=== PATIENT | female | born 1965 | race Caucasian/White ===

== ENCOUNTER → 2016-03-15 | Outpatient (CLI) | payer BC ==
[~2016-03-15] MED LIST: BCPILLS PO
== END | disposition home or self-care (01) ==
LOC: C.PAPS 12:03
PROVIDERS: ATTEND Obstetrics & Gynecology
DX: Z01.419 Encounter for gynecological examination (general) (routine) without abnormal findings (principal); N87.0 Mild cervical dysplasia

== ENCOUNTER → 2016-06-02 | Outpatient (CLI) | payer BC ==
[2016-06-02 15:40] LABS: BASO % 1.1 %; BASO ABS # 0.09 K/uL (0-0.2); COMPLETE YES; EOS % 1.9 %; HEMATOCRIT 41.1 % (37-47); IG% 0.2 %; LYMPH % 26.5 %; LYMPH ABS # 2.24 K/uL (1.2-3.4); MEAN CELL VOLUME 97.6 fL (80-100); MEAN CORPUSCULAR HEMOGLOBIN 33.7 pg (25-34); MEAN CORPUSCULAR HGB CONC 34.5 g/dl (32-36); MEAN PLATELET VOLUME 9.8 fL (7.4-10.4); MONO % 7.7 %; NEUT % 62.6 %; PLATELET COUNT 310 K/uL (130-400); RED BLOOD COUNT 4.21 M/uL (4.2-5.4); WHITE BLOOD COUNT 8.44 K/uL (4.8-10.8)
[2016-06-02 16:15] LABS: ALT/SGPT 43 U/L (12-78); AST/SGOT 33 U/L (15-37); BLOOD UREA NITROGEN 24 mg/dl (7-18); BUN/CREATININE RATIO 23.9 (10-20); CALCIUM 9.3 mg/dl (8.5-10.1); CARBON DIOXIDE 30 mmol/L (21-32); CHLORIDE 101 mmol/L (98-107); GLUCOSE 108 mg/dl (70-99); POTASSIUM 4.2 mmol/L (3.5-5.1); SODIUM 139 mmol/L (136-145)
[2016-06-02 16:27] LABS: ALKALINE PHOSPHATASE 75 U/L (45-117)
== END | disposition home or self-care (01) ==
LOC: C.LAB 14:11
PROVIDERS: ATTEND Psychiatry & Neurology Psychiatry
DX: F33.2 Major depressive disorder, recurrent severe without psychotic features (principal)

== ENCOUNTER 2021-08-05 14:58 | Inpatient (IN) ==
--- NOTE | 2021-08-05 16:16 | Emergency Department Note ---
History of Present Illness General Chief complaint: Abnormal Labs/Diagnostic Testing Stated complaint: Weakness Time Seen by Provider: 08/05/21 15:36 Source: patient Mode of arrival: ambulatory Limitations: no limitations History of Present Illness Provider complaint: dizziness, vomiting, abnormal labs Onset (ago): week(s) 5 Associated symptoms: + loss of appetite, + malaise and + nausea/vomiting; no chest pain, no fever/chills or no headaches Treatments prior to arrival: none This is a 56-year-old female presents emergency department complaining of dizziness, vomiting, weakness, and abnormal labs. Patient states symptoms first began about 5 to 6 weeks ago. She had finally gone to her PCP recently who ordered outpatient labs on her. She states she received phone call that her labs were abnormal and she was to come to the emergency room for additional evaluation. Patient denies any history of stomach problems, but does states th at she vomits daily and has a hard time keeping anything down. She states she does have a history of reflux and does take a stomach medication daily. Patient states she also has history of seizures and takes Keppra. She states she has not had a seizure in about a year. She states her medications were recently changed and that her bupropion was stopped and she was started on escitalopram. She states she also takes daily thyroid medication. Denies any sick contact. Patient denies any history of IBS or IBD. Patient states she has had several falls related to her dizziness. Patient also admits to daily alcohol use after work. She states after work she will go to the pub "drink 3 beers". Pt seen during a time of high acuity and national emergency pandemic while wearing PPE. Home Medications Medication Instructions Recorded Confirmed Type bupropion HCl 300 mg 24 hr tablet, 300 mg PO QPM 11/07/17 08/05/21 History extended release levetiracetam 500 mg tablet 500 mg PO BID 28 Days #56 tab 01/29/20 08/05/21 Rx (Keppra) levothyroxine 75 mcg tablet 75 mcg PO QAM 05/28/20 08/05/21 History mecobalamin (vitamin B12) 1,000 1,000 mcg PO QAM 08/05/21 08/05/21 History mcg chewable tablet (B12 Active) pantoprazole 40 mg tablet,delayed 40 mg PO QAM 08/05/21 08/05/21 History release Allergies Allergy/AdvReac Type Severity Reaction Status Date / Time No Known Allergies Allergy Unknown Verified 11/07/17 17:50 Past Med/Surg History Medical History (Updated 08/06/21 @ 22:05 by Carlee Mayer DO) Alcohol abuse Alcoholic liver disease Depression Encounter for gynecological examination without abnormal finding Menopause Mild cervical dysplasia, histologically confirmed Postmenopausal hormone replacement therapy Social History Smoking Status: Current some day smoker Tobacco Type: Cigarettes Second Hand Exposure: No; Do You Dip or Chew Tobacco: No; Tobacco Cessation Education Requested by Patient: No Hx Alcohol Use: Yes Alcohol type: beer Hx Substance Use: No Preferred Language: Namibian Communication Ability Comment: Not able to comprehend at this time. 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 Beliefs That Will Affect Care: None Feels Safe at Home: Yes Safety Concerns: Feels Safe At This Time Review of Systems A total of 10 systems reviewed and were otherwise negative All systems reviewed & are unremarkable except as noted in HPI & below Physical Exam Vital Signs Vital Signs - 24 hr 08/05/21 15:22 08/05/21 17:00 08/05/21 19:00 Temperature 37.3 C Temperature Source Oral Pulse Rate 83 Pulse Rate [Right Finger] 94 H 90 Pulse Rhythm Regular Pulse Rhythm [Right Finger] Regular Regular Pulse Strength Normal Pulse Strength [Right Finger] Normal Normal Respiratory Rate 16 18 18 Respiratory Effort / Characteristics Non-Labored Non-Labored Non-Labored Respiratory Depth Normal Normal Normal Respiratory Pattern Regular Regular Regular Blood Pressure 117/79 Blood Pressure [Left Arm] 110/83 110/83 Blood Pressure Mean 91 Blood Pressure Mean [Left Arm] 92 92 Blood Pressure Position Lying Blood Pressure Position [Left Arm] Lying Pulse Oximetry 98 99 98 Oxygen Delivery Method Room Air Room Air Sepsis Recent Fever Within 48 Hours No Sepsis New/Unexplained Change in Mental Status No Sepsis Action Taken by Nursing No Action Required 08/05/21 21:00 Temperature Temperature Source Pulse Rate Pulse Rate [Right Finger] 87 Pulse Rhythm Pulse Rhythm [Right Finger] Regular Pulse Strength Pulse Strength [Right Finger] Normal Respiratory Rate 18 Respiratory Effort / Characteristics Non-Labored Respiratory Depth Normal Respiratory Pattern Regular Blood Pressure Blood Pressure [Left Arm] 132/77 Blood Pressure Mean Blood Pressure Mean [Left Arm] 95 Blood Pressure Position Blood Pressure Position [Left Arm] Lying Pulse Oximetry 97 Oxygen Delivery Method Room Air Sepsis Recent Fever Within 48 Hours Sepsis New/Unexplained Change in Mental Status Sepsis Action Taken by Nursing GENERAL: alert, unwell appearing, anxious, no distress, non-toxic EYE EXAM: normal conjunctiva, PERRL and EOM's grossly intact, scleral icterus noted OROPHARYNX: no exudate, no erythema, lips, buccal mucosa, and tongue normal and mucous membranes are moist NECK: supple, no nuchal rigidity, no adenopathy, non-tender LUNGS: Clear to auscultation. Normal chest wall mechanics, no w/r/r HEART: no murmurs, S1 normal and S2 normal ABDOMEN: abdomen soft, non-tender, normo-active bowel sounds, no masses, no rebound or guarding. BACK: Back is symmetrical on inspection and there is no deformity, no midline tenderness, no CVA tenderness. SKIN: no rashes, no petechiae, small bruise noted to the left forearm, patient obviously jaundiced UPPER EXTREMITIES: upper extremities are grossly normal. FROM, nml pulses b/l. LOWER EXTREMITIES: No pitting edema. FROM, nml pulses b/l. NEURO EXAM: Normal sensorium, cranial nerves II-XII grossly intact, normal speech, no gross weakness of arms, no gross weakness of legs. Fine tremors noted. gross sensation intact. Course Administered Medications Cyanocobalamin (Cyanocobalamin (B-12) 500 Mcg Tablet) 1,[address] [facility] Stop: 09/05/21 08:59 Last Admin: 08/06/21 08:06 Dose: 1,000 mcg Documented by: [id number] Folic Acid (Folic Acid 1 Mg Tab) [address] [facility] Stop: 09/05/21 00:03 Last Admin: 08/06/21 08:06 Dose: 1 mg Documented by: [id number] Admin: 08/06/21 00:57 Dose: 1 mg Documented by: [id number] Potassium Chloride/Sodium Chloride (Normal Saline W/20 Meq Kcl) 20 meq in 1,000 mls @ 100 mls/hr IV .Q10H [facility]; Protocol Stop: 08/07/21 11:29 Last Admin: 08/06/21 16:32 Dose: 100 mls/hr Documented by: [id number] Ceftriaxone Sodium 1,000 mg/ (Dextrose) 60 mls @ 100 mls/hr IV Q24H [facility]; Protocol Stop: 08/08/21 21:59 Last Infusion: 08/06/21 21:36 Dose: 0 mls/hr Documented by: [id number] Admin: 08/06/21 20:59 Dose: 100 mls/hr Documented by: [id number] Levetiracetam (Levetiracetam 500 Mg Tab) 500 mg PO BID [facility] Stop: 09/05/21 08:59 Last Admin: 08/06/21 20:59 Dose: 500 mg Documented by: [id number] Admin: 08/06/21 08:06 Dose: 500 mg Documented by: [id number] Levothyroxine Sodium (Levothyroxine Sodium 75 Mcg Tablet) 75 mcg PO DAILYBB [facility] Stop: 09/05/21 06:29 Last Admin: 08/06/21 08:06 Dose: 75 mcg Documented by: [id number] Lorazepam (Lorazepam 2 Mg/1 Ml Vial) 1 mg IV UD PRN; Protocol PRN Reason: EtOH Withdrawl AWSS Score 6,7 Stop: 09/05/21 00:03 Last Admin: 08/06/21 21:00 Dose: 1 mg Documented by: [id number] Lorazepam (Lorazepam 2 Mg/1 Ml Vial) 2 mg IV UD PRN; Protocol PRN Reason: EtOH Withdrawl AWSS Score 8,9 Stop: 09/05/21 00:03 Last Admin: 08/06/21 00:57 Dose: 2 mg Documented by: [id number] Potassium Chloride (Potassium Chloride Crtab 20 Meq Tabcr) 20 meq PO Q4H [facility] Stop: 08/07/21 10:31 Last Admin: 08/06/21 21:00 Dose: 20 meq Documented by: [id number] Admin: 08/06/21 18:42 Dose: 20 meq Documented by: [id number] Prednisolone Sodium Phosphate (Prednisolone Sod Phosphate 15 Mg/5 Ml) 40 mg PO BID [facility] Stop: 09/05/21 20:59 Last Admin: 08/06/21 20:59 Dose: 40 mg Documented by: [id number] Thiamine HCl (Thiamine Hcl 100 Mg Tab) 100 mg PO QAM [facility] Stop: 09/05/21 00:03 Last Admin: 08/06/21 08:07 Dose: 100 mg Documented by: [id number] Admin: 08/06/21 00:57 Dose: 100 mg Documented by: [id number] Discontinued Medications Sodium Chloride (Nss 1000ml) 1,000 mls @ 125 mls/hr IV .Q8H [facility] Stop: 09/04/21 17:59 Last Infusion: 08/06/21 13:35 Dose: 0 mls/hr Documented by: [id number] Admin: 08/06/21 09:39 Dose: 125 mls/hr Documented by: [id number] Infusion: 08/06/21 09:39 Dose: 125 mls/hr Documented by: [id number] Admin: 08/06/21 02:32 Dose: 125 mls/hr Documented by: [id number] Infusion: 08/06/21 02:31 Dose: 0 mls/hr Documented by: [id number] Admin: 08/05/21 18:41 Dose: 125 mls/hr Documented by: [id number] Multivitamins 10 ml/ Thiamine HCl 100 mg/ Folic Acid 1 mg/Sodium Chloride 1,011.2 mls @ 200 mls/hr IV .Q5H4M ONE Stop: 08/05/21 22:59 Last Infusion: 08/06/21 01:38 Dose: 0 mls/hr Documented by: [id number] Admin: 08/05/21 18:40 Dose: 200 mls/hr Documented by: [id number] Ceftriaxone Sodium (Rocephin) 1,000 mg in 50 mls @ 100 mls/hr IV NOW STA Stop: 08/05/21 21:21 Last Infusion: 08/05/21 22:43 Dose: 0 mls/hr Documented by: [id number] Admin: 08/05/21 21:55 Dose: 100 mls/hr Documented by: [id number] Potassium Chloride (K Keny / Wtr) 10 meq in 100 mls @ 100 mls/hr IV Q1H [facility]; Protocol Stop: 08/06/21 17:44 Last Infusion: 08/06/21 17:41 Dose: 0 mls/hr Documented by: [id number] Admin: 08/06/21 16:33 Dose: 100 mls/hr Documented by: [id number] Infusion: 08/06/21 16:33 Dose: 100 mls/hr Documented by: [id number] Admin: 08/06/21 16:32 Dose: 100 mls/hr Documented by: [id number] Infusion: 08/06/21 15:12 Dose: 0 mls/hr Documented by: [id number] Admin: 08/06/21 14:09 Dose: 100 mls/hr Documented by: [id number] Infusion: 08/06/21 14:09 Dose: 100 mls/hr Documented by: [id number] Admin: 08/06/21 14:09 Dose: 100 mls/hr Documented by: [id number] Lorazepam (Lorazepam 2 Mg/1 Ml Vial) 0.5 mg IV NOW STA; Protocol Stop: 08/05/21 20:22 Last Admin: 08/05/21 20:52 Dose: 0.5 mg Documented by: [id number] Potassium Chloride (Potassium Chloride Crtab 20 Meq Tabcr) 20 meq PO TID [facility] Stop: 08/07/21 09:01 Last Admin: 08/06/21 14:09 Dose: 20 meq Documented by: [id number] Medical Decision Making Differential Diagnosis Differential diagnosis includes etiologies such as benign positional vertigo, dehydration, hypovolemia, anemia, tumor, infection, hypoglycemia, electrolyte abnormalities, cardiac sources, intracerebral event, toxicologic, neurologic, as well as others were entertained. Medical Records Attestation: I reviewed the patient's medical records. Home Medications Current Medication List: was personally reviewed by me Laboratory Data Attestation: I reviewed the patient's lab results. Result diagrams: 08/06/21 06:49 08/06/21 19:08 Lab Results 08/05/21 08/05/21 08/05/21 Range/Units 15:27 15:27 15:27 WBC 6.11 (4.8-10.8) K/uL RBC 2.32 L (4.2-5.4) M/uL Hgb 8.7 L (12.0-16.0) g/dL Hct 25.5 L (37-47) % MCV 109.9 H (80-100) fL MCH 37.5 H (25-34) pg MCHC 34.1 (32-36) g/dL RDW Std Deviation 63.1 H (36.4-46.3) fL RDW Coeff of Wilbur 16.4 H (11.5-14.5) % Plt Count 198 (130-400) K/uL MPV 11.8 H (7.4-10.4) fL Immature Gran % (Auto) 0.8 % Neut % (Auto) 72.1 % Lymph % (Auto) 13.1 % [place] % (Auto) 13.3 % Eos % (Auto) 0.2 % Baso % (Auto) 0.5 % Neut # (Auto) 4.41 (1.4-6.5) K/uL Lymph # (Auto) 0.80 L (1.2-3.4) K/uL [place] # (Auto) 0.81 H (0.11-0.59) K/uL Eos # (Auto) 0.01 (0-0.5) K/uL Baso # (Auto) 0.03 (0-0.2) K/uL Immature Gran # (Auto) 0.05 H (0.00-0.02) K/uL Absolute Nucleated RBC 0.10 H (0-0) K/uL Nucleated RBC % (auto) 1.6 % PT 12.0 (9.0-12.0) Seconds INR 1.1 (0.9-1.1) Sodium 123 L (136-145) mmol/L Potassium 3.2 L (3.5-5.1) mmol/L Chloride 84 L (98-107) mmol/L Carbon Dioxide 26 (21-32) mmol/L Anion Gap 13 H (3-11) BUN 9 (6-23) mg/dl Creatinine 0.67 (0.6-1.2) mg/dl Est Cr Clr Drug Dosing 63.4 ml/min Est GFR ( Amer) 112.3 ml/min Est GFR (Non-Af Amer) 96.9 ml/min BUN/Creatinine Ratio 13.4 (10-20) Glucose 102 H (70-99(Fasting)) mg/dl Calcium 8.1 L (8.5-10.1) mg/dl Magnesium 1.8 (1.7-2.4) mg/dl Total Bilirubin 15.3 H (0.2-1.0) mg/dl AST 261 H (13-39) U/L ALT 102 H (7-52) U/L Alkaline Phosphatase 399 H (34-104) U/L Ammonia (18-72) umol/L Troponin I High Sens 33.2 H (0-14) pg/ml Total Protein 4.8 L (6.0-8.3) gm/dl Albumin 2.9 L (3.4-5.0) gm/dl Globulin 1.9 L (2.5-4.0) gm/dl Albumin/Globulin Ratio 1.5 (0.9-2) Lipase TNP TSH (0.300-4.500) uIu/ml Urine Color Urine Appearance (Clear) Urine pH (4.5-7.5) Ur Specific Jewett (1.000-1.030) Urine Protein (Negative) Urine Glucose (UA) (Negative) Urine Ketones (Negative) Urine Blood (Negative) Urine Nitrite (Negative) Urine Bilirubin (Negative) Urine Urobilinogen (Negative) Ur Leukocyte Esterase (Negative) Urine WBC (Auto) (0-5) /hpf Urine RBC (Auto) (0-4) /hpf U Hyaline Cast (Auto) (0-5) /lpf U Epithel Cells (Auto) (0-5) /lpf Urine Bacteria (Auto) (Negative) Urine Crystals Calcium Oxalate Crystal (None Prsent) Acetaminophen (10-30) ug/ml Ethyl Alcohol mg/dL (<10.0) mg/dl SARS-CoV-2, RNA, NAAT (NEGATIVE) 08/05/21 08/05/21 08/05/21 Range/Units 15:27 15:27 15:27 WBC (4.8-10.8) K/uL RBC (4.2-5.4) M/uL Hgb (12.0-16.0) g/dL Hct (37-47) % MCV (80-100) fL MCH (25-34) pg MCHC (32-36) g/dL RDW Std Deviation (36.4-46.3) fL RDW Coeff of Wilbur (11.5-14.5) % Plt Count (130-400) K/uL MPV (7.4-10.4) fL Immature Gran % (Auto) % Neut % (Auto) % Lymph % (Auto) % [place] % (Auto) % Eos % (Auto) % Baso % (Auto) % Neut # (Auto) (1.4-6.5) K/uL Lymph # (Auto) (1.2-3.4) K/uL [place] # (Auto) (0.11-0.59) K/uL Eos # (Auto) (0-0.5) K/uL Baso # (Auto) (0-0.2) K/uL Immature Gran # (Auto) (0.00-0.02) K/uL Absolute Nucleated RBC (0-0) K/uL Nucleated RBC % (auto) % PT (9.0-12.0) Seconds INR (0.9-1.1) Sodium (136-145) mmol/L Potassium (3.5-5.1) mmol/L Chloride (98-107) mmol/L Carbon Dioxide (21-32) mmol/L Anion Gap (3-11) BUN (6-23) mg/dl Creatinine (0.6-1.2) mg/dl Est Cr Clr Drug Dosing ml/min Est GFR ( Amer) ml/min Est GFR (Non-Af Amer) ml/min BUN/Creatinine Ratio (10-20) Glucose (70-99(Fasting)) mg/dl Calcium (8.5-10.1) mg/dl Magnesium (1.7-2.4) mg/dl Total Bilirubin (0.2-1.0) mg/dl AST (13-39) U/L ALT (7-52) U/L Alkaline Phosphatase (34-104) U/L Ammonia (18-72) umol/L Troponin I High Sens (0-14) pg/ml Total Protein (6.0-8.3) gm/dl Albumin (3.4-5.0) gm/dl Globulin (2.5-4.0) gm/dl Albumin/Globulin Ratio (0.9-2) Lipase TSH 1.108 (0.300-4.500) uIu/ml Urine Color Urine Appearance (Clear) Urine pH (4.5-7.5) Ur Specific Jewett (1.000-1.030) Urine Protein (Negative) Urine Glucose (UA) (Negative) Urine Ketones (Negative) Urine Blood (Negative) Urine Nitrite (Negative) Urine Bilirubin (Negative) Urine Urobilinogen (Negative) Ur Leukocyte Esterase (Negative) Urine WBC (Auto) (0-5) /hpf Urine RBC (Auto) (0-4) /hpf U Hyaline Cast (Auto) (0-5) /lpf U Epithel Cells (Auto) (0-5) /lpf Urine Bacteria (Auto) (Negative) Urine Crystals Calcium Oxalate Crystal (None Prsent) Acetaminophen < 3 L (10-30) ug/ml Ethyl Alcohol mg/dL < 10.0 (<10.0) mg/dl SARS-CoV-2, RNA, NAAT (NEGATIVE) 08/05/21 08/05/21 08/05/21 Range/Units 16:12 19:32 20:10 WBC (4.8-10.8) K/uL RBC (4.2-5.4) M/uL Hgb (12.0-16.0) g/dL Hct (37-47) % MCV (80-100) fL MCH (25-34) pg MCHC (32-36) g/dL RDW Std Deviation (36.4-46.3) fL RDW Coeff of Wilbur (11.5-14.5) % Plt Count (130-400) K/uL MPV (7.4-10.4) fL Immature Gran % (Auto) % Neut % (Auto) % Lymph % (Auto) % [place] % (Auto) % Eos % (Auto) % Baso % (Auto) % Neut # (Auto) (1.4-6.5) K/uL Lymph # (Auto) (1.2-3.4) K/uL [place] # (Auto) (0.11-0.59) K/uL Eos # (Auto) (0-0.5) K/uL Baso # (Auto) (0-0.2) K/uL Immature Gran # (Auto) (0.00-0.02) K/uL Absolute Nucleated RBC (0-0) K/uL Nucleated RBC % (auto) % PT (9.0-12.0) Seconds INR (0.9-1.1) Sodium (136-145) mmol/L Potassium (3.5-5.1) mmol/L Chloride (98-107) mmol/L Carbon Dioxide (21-32) mmol/L Anion Gap (3-11) BUN (6-23) mg/dl Creatinine (0.6-1.2) mg/dl Est Cr Clr Drug Dosing ml/min Est GFR ( Amer) ml/min Est GFR (Non-Af Amer) ml/min BUN/Creatinine Ratio (10-20) Glucose (70-99(Fasting)) mg/dl Calcium (8.5-10.1) mg/dl Magnesium (1.7-2.4) mg/dl Total Bilirubin (0.2-1.0) mg/dl AST (13-39) U/L ALT (7-52) U/L Alkaline Phosphatase (34-104) U/L Ammonia 54.0 (18-72) umol/L Troponin I High Sens (0-14) pg/ml Total Protein (6.0-8.3) gm/dl Albumin (3.4-5.0) gm/dl Globulin (2.5-4.0) gm/dl Albumin/Globulin Ratio (0.9-2) Lipase TSH (0.300-4.500) uIu/ml Urine Color Dark Yellow Urine Appearance Cloudy A (Clear) Urine pH 6.5 (4.5-7.5) Ur Specific Jewett 1.014 (1.000-1.030) Urine Protein Negative (Negative) Urine Glucose (UA) Negative (Negative) Urine Ketones Trace H (Negative) Urine Blood Negative (Negative) Urine Nitrite Positive A (Negative) Urine Bilirubin 3+ H (Negative) Urine Urobilinogen Positive H (Negative) Ur Leukocyte Esterase Trace H (Negative) Urine WBC (Auto) 1-5 (0-5) /hpf Urine RBC (Auto) 0-4 (0-4) /hpf U Hyaline Cast (Auto) 1-5 (0-5) /lpf U Epithel Cells (Auto) 10-20 H (0-5) /lpf Urine Bacteria (Auto) Negative (Negative) Urine Crystals Not Reportable Calcium Oxalate Crystal Present A (None Prsent) Acetaminophen (10-30) ug/ml Ethyl Alcohol mg/dL (<10.0) mg/dl SARS-CoV-2, RNA, NAAT NEGATIVE (NEGATIVE) Imaging Data Radiologist's Impression: Abdomen Ultrasound 08/05/21 17:17 US abdomen limited CLINICAL HISTORY: abnormal lft's. COMPARISON: None. TECHNIQUE: Multiple grayscale and color images of the right upper quadrant of the abdomen. FINDINGS: The study is limited by overlying bowel gas. Pancreas: The imaged portion of the pancreas is within normal limits with no focal mass or peripancreatic fluid collection identified. Liver: Liver is enlarged measuring 18.5 cm with diffuse increased echogenicity characteristic of fatty infiltration and hepatocellular disease. There is no evidence for a focal mass. There is no intrahepatic biliary duct dilatation. There is evidence for small amount of fluid surrounding the liver representing ascites. Gallbladder: The gallbladder is well distended with no evidence of cholelithiasis, wall thickening or pericholecystic edema. There was reportedly a negative sonographic Martinez sign. Common Bile Duct: (CBD): It is normal in size measuring 3 mm. Inferior Vena Cava (IVC): The imaged IVC is patent. Right kidney: There is no evidence for hydronephrosis, calculus or gross renal mass. The kidney is normal in size. IMPRESSION: 1. Hepatomegaly with diffuse fatty infiltration/hepatocellular disease. 2. Mild ascites. ACT 112: Negative or not required by law. Electronically signed by: Asif Lundy M.D. 08/05/2021 7:40 PM ECG Data Attestation: I personally reviewed and interpreted this ECG as follows: Indication: + weakness Rate (beats per minute): 80 Rhythm: + normal sinus ECG Intervals/blocks: + Normal QRS and + Normal QT ECG [place]: + Normal ECG ST segments: + Normal ST segments MDM Narrative An order was placed for continuous cardiac monitoring. The monitor shows a rate of _88_ with _normal sinus_ rhythm. This is an unwell appearing 56-year-old female who presents after she states her PCP called her due to abnormal outpatient labs. Patient denies noting any evolving jaundice which was evident on exam. Patient was afebrile and hemodynamically stable. No significant evidence of active alcohol withdrawal. Patient started on gentle IV fluid rehydration as well as banana bag for repletion. Labs with elevated bilirubin and transaminases. Anemia noted. No significant thrombocytopenia. No evidence of coagulopathy. Patient found to be hyponatremic, likely from accompanying beer drinker [place]. I suspect p atient with poor nutrition overall from ongoing alcohol abuse. Right upper quadrant ultrasound reassuring. Case discussed with hospitalist team for additional evaluation and management. Patient and at bedside made aware of all results. Patient's UA was abnormal though she had no urinary symptoms. Patient given 1 g Rocephin as a precaution until culture known. I do not suspect a sending UTI or pyelonephritis. Impression & Plan Alcoholic liver disease, Alcohol abuse, Elevated troponin I level, Hyponatremia, Anemia, Abnormal LFTs, UTI (urinary tract infection), Hypokalemia Discharge Plan Visit Data Chief Complaint: Abnormal Labs/Diagnostic Testing Stated Complaint: Weakness ED Provider: Carlee Mayer Discharge Problem: Alcoholic liver disease, Alcohol abuse, Elevated troponin I level, Hyponatremia, Anemia, Abnormal LFTs, UTI (urinary tract infection), Hypokalemia Patient Disposition: Admitted As Inpatient Discharge Instructions Interventions: ED Discharge Assessment Last Done: 08/05/21 23:34 Discharge Problem: Anemia Qualifiers: Anemia type: unspecified type Qualified Code(s): D64.9 - Anemia, unspecified UTI (urinary tract infection) Qualifiers: Urinary tract infection type: acute cystitis Hematuria presence: without hematuria Qualified Code(s): N30.00 - Acute cystitis without hematuria
[2021-08-05 16:21] LABS: Basophils # (auto) 0.03 K/uL (0-0.2); Basophils % (auto) 0.5 %; Eosinophils # (auto) 0.01 K/uL (0-0.5); Eosinophils % (auto) 0.2 %; Hematocrit (blood only) 25.5 % (37-47); Hemoglobin 8.7 g/dL (12.0-16.0); Immature Granulocytes # (auto) 0.05 K/uL (0.00-0.02); Immature Granulocytes % (auto) 0.8 %; Lymphocytes % (auto) 13.1 %; Mean Corpuscular Hemoglobin 37.5 pg (25-34); Mean Corpuscular Hgb Conc 34.1 g/dL (32-36); Mean Corpuscular Volume 109.9 fL (80-100); Mean Platelet Volume 11.8 fL (7.4-10.4); Monocytes # (auto) 0.81 K/uL (0.11-0.59); Monocytes % (auto) 13.3 %; Neutrophils # (auto) 4.41 K/uL (1.4-6.5); Neutrophils % (auto) 72.1 %; Nucleated RBC % (auto) 1.6 %; Platelet Count 198 K/uL (130-400); RDW Coefficient of Variation 16.4 % (11.5-14.5); RDW Standard Deviation 63.1 fL (36.4-46.3); Red Blood Count 2.32 M/uL (4.2-5.4); White Blood Count 6.11 K/uL (4.8-10.8)
[2021-08-05 16:36] LABS: INR 1.1 (0.9-1.1)
[2021-08-05 17:16] LABS: Alanine Aminotransferase 102 U/L (7-52); Albumin Globulin Ratio 1.5 (0.9-2); Albumin Level 2.9 gm/dl (3.4-5.0); Alkaline Phosphatase 399 U/L (34-104); Anion Gap 13 (3-11); Aspartate Aminotransferase 261 U/L (13-39); BUN Creatinine Ratio 13.4 (10-20); Bilirubin,Total 15.3 mg/dl (0.2-1.0); Blood Urea Nitrogen 9 mg/dl (6-23); Calcium 8.1 mg/dl (8.5-10.1); Carbon Dioxide 26 mmol/L (21-32); Chloride 84 mmol/L (98-107); Creatinine Clr Calc Pharmacy 63.4 ml/min; Est GFR (African American) 112.3 ml/min; Est GFR (Non-African American) 96.9 ml/min; Globulin 1.9 gm/dl (2.5-4.0); Glucose 102 mg/dl (70-99(Fasting)); Magnesium 1.8 mg/dl (1.7-2.4); Potassium 3.2 mmol/L (3.5-5.1); Sodium 123 mmol/L (136-145); Total Protein 4.8 gm/dl (6.0-8.3)
[2021-08-05] MEDS ORDERED: MULTI-VITAMIN INFUSION 10 ML, THIAMINE HCL 100 MG, FOLIC ACID 1 MG in SODIUM CHLORIDE 0... IV ONE (17:56)
[2021-08-05 18:03] LABS: Troponin I High Sensitivity 33.2 pg/ml (0-14)
[2021-08-05] MEDS: SODIUM CHLORIDE 0.9% 1000ML 1,000 ML IV SCH (18:41)
--- NOTE | 2021-08-05 19:41 | Ultrasound Report ---
US abdomen limited CLINICAL HISTORY: abnormal lft's. COMPARISON: None. TECHNIQUE: Multiple grayscale and color images of the right upper quadrant of the abdomen. FINDINGS: The study is limited by overlying bowel gas. Pancreas: The imaged portion of the pancreas is within normal limits with no focal mass or peripancre atic fluid collection identified. Liver: Liver is enlarged measuring 18.5 cm with diffuse increased echogenicity characteristic of fatt y infiltration and hepatocellular disease. There is no evidence for a focal mass. There is no intrahe patic biliary duct dilatation. There is evidence for small amount of fluid surrounding the liver repr esenting ascites. Gallbladder: The gallbladder is well distended with no evidence of cholelithiasis, wall thickening or pericholecystic edema. There was reportedly a negative sonographic Martinez sign. Common Bile Duct: (CBD): It is normal in size measuring 3 mm. Inferior Vena Cava (IVC): The imaged IVC is patent. Right kidney: There is no evidence for hydronephrosis, calculus or gross renal mass. The kidney is no rmal in size. IMPRESSION: 1. Hepatomegaly with diffuse fatty infiltration/hepatocellular disease. 2. Mild ascites. ACT 112: Negative or not required by law. Electronically signed by: Asif Lundy M.D. 08/05/2021 7:40 PM
[2021-08-05] MEDS ORDERED: LORazepam 2 MG/1 ML VIAL IV STA (20:21)
[2021-08-05 20:49] LABS: Appearance Urine Cloudy (Clear); Bacteria Urine Automated Negative (Negative); Blood Urine Negative (Negative); Color Urine Dark Yellow; Glucose Urine UA Negative (Negative); Ketones Urine Trace (Negative); Leukocyte Esterase Urine Trace (Negative); Nitrite Urine Positive (Negative); Protein Urine Negative (Negative); RBC Urine Automated 0-4 /hpf (0-4); Specific Gravity Urine 1.014 (1.000-1.030); Urobilinogen Urine Positive (Negative); pH Urine 6.5 (4.5-7.5)
[2021-08-05 20:50] LABS: Bilirubin Urine 3+ (Negative)
[2021-08-05] MEDS ORDERED: cefTRIAXone SODIUM 1,000 MG/50 ML BAG IV STA (20:52)
[2021-08-05 21:02] LABS: Calcium Oxalate Crystals Urine Present (None Prsent)
--- NOTE | 2021-08-05 22:24 | History & Physical Report ---
Date of Service August 05, 2021 Assessment & Plan (1) Alcoholic liver disease: Plan: Alcoholic liver disease/Warnicke's encephalopathy/alcohol abuse- Patient's primary symptoms are likely secondary to these diagnoses Place on thiamine 100 mg p.o. every morning, folic acid 1 mg p.o. every morning after receiving banana bag in ED Counseling regarding alcohol cessation (2) Seizure: Plan: Continue Keppra 500 mg p.o. twice daily (3) Alcohol abuse: Plan: Placed on AWSS protocol with IV Ativan (4) Depression: Plan: Continue escitalopram As noted above, patient has had bupropion discontinued recently (5) Elevated troponin I level: Plan: Troponin 33.2 upon admission The patient will be admitted to telemetry for serial cardiac enzymes, serial EKG's, cardiac rhythm monitoring and a 2-D echocardiogram with Dopplers. Likely type II IL, supply demand mismatch (6) Hyponatremia: Plan: Beer Potomania Sodium 123 upon admission Serum and urine osmolality ordered and pending LR at 80 mils per hour (7) Anemia: Plan: Hyperchromic, macrocytic anemia Likely secondary to alcohol abuse Follow serially (8) Fatty liver: Plan: Abnormal LFTs will be followed, As noted on ultrasound Order follow-up CT to assess for possible cirrhosis (9) Hypokalemia: Plan: Potassium 3.2 upon admission Replace with IV, recheck laboratory serially (10) Abnormal LFTs: Plan: See above (11) UTI (urinary tract infection): Plan: Follow urine culture and sensitivity Empiric ceftriaxone 1 g IV daily History of Present Illness Chief Complaint: The patient presents to the emergency department, with her , with complaints of dizziness, vomiting, generalized weakness and abnormal laboratories performed in the outpatient setting Primary Care Provider: Manolo De Leon The patient is a 56-year-old female with a past medical history including seizure disorder, hypothyroidism, depression, GERD and vitamin B12 deficiency. She reports that about 5 to 6 weeks ago, she developed the above symptoms. She went to her family PCP, had some laboratories done earlier this week, received a call that they were abnormal, and that she was coming to the emergency room for additional assessment. She reports that she has had worsening reflux, and vomits on a daily basis. She reports that she had been on bupropion, which was recently stopped and changed to escitalopram. She denies any recent travels or sick exposures. She reports that she on a daily basis go to the public and drinks 3 beers after work. Allergies Allergy/AdvReac Type Severity Reaction Status Date / Time No Known Allergies Allergy Unknown Verified 11/07/17 17:50 Home Medications Medication Instructions Recorded Confirmed Type bupropion HCl 300 mg 24 hr tablet, 300 mg PO QPM 11/07/17 08/05/21 History extended release levetiracetam 500 mg tablet 500 mg PO BID 28 Days #56 tab 01/29/20 08/05/21 Rx (Keppra) levothyroxine 75 mcg tablet 75 mcg PO QAM 05/28/20 08/05/21 History mecobalamin (vitamin B12) 1,000 1,000 mcg PO QAM 08/05/21 08/05/21 History mcg chewable tablet (B12 Active) pantoprazole 40 mg tablet,delayed 40 mg PO QAM 08/05/21 08/05/21 History release Past Med/Surg History Medical History (Updated 08/06/21 @ 03:36 by Rayshawn De La Torre MD) Alcohol abuse Alcoholic liver disease Depression Encounter for gynecological examination without abnormal finding Menopause Mild cervical dysplasia, histologically confirmed Postmenopausal hormone replacement therapy Social History Smoking Status: Current every day smoker Tobacco Type: Cigarettes Feels Safe at Home: Yes Review of Systems Review of Systems: The patient denies chest pain, palpitations, shortness of breath, dyspnea on exertion, cough, lower extremity swelling, sore throat, fevers, chills, sweats, diarrhea , constipation, blood in urine or stool, dysuria, urinary frequency or urgency, loss of consciousness, rash, abnormal bruising or bleeding, focal weakness, numbness or tingling in arms or legs, generalized arthralgias or myalgias, back or neck pain, or night sweats. The review of systems is otherwise negative other than for that already noted above, and at least 10 systems have been reviewed. Physical Exam Physical Exam: The patient is awake, attempts to respond to questioning but appears confused, appears malnourished, normocephalic and atraumatic, lying in bed and in no acute distress. HEENT--PERRL, EOMI, mucous membranes and oropharynx dry. Neck--supple. No JVD. No bruits. Thyroid normal, trachea midline, no adenopathy. Heart--normal S1 and S2. No murmurs, rubs or gallops. Lungs--clear bilaterally, no respiratory distress, no accessory muscle use. Abdomen--normal bowel sounds and soft. Nontender. Nondistended, no hernias or masses, no organomegaly. Extremities--no cyanosis or clubbing. No edema. Dermatologic--normal skin turgor, normal color, no abnormal lymph nodes, no rash. Neurologic--cranial nerves II through XII grossly intact. Rheumatologic--normal range of motion. Psychiatric--confused Results & Data Results & Data ([facility]) Vital Signs (Past 12 Hours) Vital Signs Temp Pulse Pulse Resp BP BP Pulse Ox 08/05/21 21:00 87 18 132/77 97 08/05/21 19:00 90 18 110/83 98 08/05/21 17:00 94 H 18 110/83 99 08/05/21 15: 37.3 C 83 16 117/79 98 Laboratory Results Laboratory Results WBC 6.11 K/uL (4.8-10.8) 08/05/21 15: RBC 2.32 M/uL (4.2-5.4) L 08/05/21 15: Hgb 8.7 g/dL (12.0-16.0) L 08/05/21 15: Hct 25.5 % (37-47) L 08/05/21 15:27 MCV 109.9 fL (80-100) H 08/05/21 15: MCH 37.5 pg (25-34) H 08/05/21 15: MCHC 34.1 g/dL (32-36) 08/05/21 15: RDW Std Deviation 63.1 fL (36.4-46.3) H 08/05/21 15: RDW Coeff of Wilubr 16.4 % (11.5-14.5) H 08/05/21 15: Plt Count 198 K/uL (130-400) 08/05/21 15: MPV 11.8 fL (7.4-10.4) H 08/05/21 15: Immature Gran % (Auto) 0.8 % 08/05/21 15: Neut % (Auto) 72.1 % 08/05/21 15: Lymph % (Auto) 13.1 % 08/05/21 15: Gentry % (Auto) 13.3 % 08/05/21 15: Eos % (Auto) 0.2 % 08/05/21 15: Baso % (Auto) 0.5 % 08/05/21 15: Neut # (Auto) 4.41 K/uL (1.4-6.5) 08/05/21: Lymph # (Auto) 0.80 K/uL (1.2-3.4) L 08/05/21: Gentry # (Auto) 0.81 K/uL (0.11-0.59) H 08/05/21: Eos # (Auto) 0.01 K/uL (0-0.5) 08/05/21: Baso # (Auto) 0.03 K/uL (0-0.2) 08/05/21: Immature Gran # (Auto) 0.05 K/uL (0.00-0.02) H 08/05/21: Absolute Nucleated RBC 0.10 K/uL (0-0) H 08/05/21: Nucleated RBC % (auto) 1.6 % 08/05/21: PT 12.0 Seconds (9.0-12.0) 08/05/21: INR 1.1 (0.9-1.1) 08/05/21: Sodium 123 mmol/L (136-145) L 08/05/21: Potassium 3.2 mmol/L (3.5-5.1) L 08/05/21: Chloride 84 mmol/L (98-107) L 08/05/21: Carbon Dioxide 26 mmol/L (21-32) 08/05/21: Anion Gap 13 (3-11) H 08/05/21 15: BUN 9 mg/dl (6-23) 08/05/21: Creatinine 0.67 mg/dl (0.6-1.2) 08/05/21: Est Cr Clr Drug Dosing 63.4 ml/min 08/05/21: Est GFR ( Amer) 112.3 ml/min 08/05/21 15: Est GFR (Non-Af Amer) 96.9 ml/min 08/05/21 15: BUN/Creatinine Ratio 13.4 (10-20) 08/05/21 15: Glucose 102 mg/dl (70-99(Fasting)) H 08/05/21 15:27 Calcium 8.1 mg/dl (8.5-10.1) L 08/05/21 15: Magnesium 1.8 mg/dl (1.7-2.4) 08/05/21 15: Total Bilirubin 15.3 mg/dl (0.2-1.0) H 08/05/21 15: AST 261 U/L (13-39) H 08/05/21 15: ALT 102 U/L (7-52) H 08/05/21 15: Alkaline Phosphatase 399 U/L (34-104) H 08/05/21 15: Ammonia 54.0 umol/L (18-72) 08/05/21 16:12 Troponin I High Sens 33.2 pg/ml (0-14) H 08/05/21 15: Total Protein 4.8 gm/dl (6.0-8.3) L 08/05/21 15: Albumin 2.9 gm/dl (3.4-5.0) L 08/05/21 15: Globulin 1.9 gm/dl (2.5-4.0) L 08/05/21 15: Albumin/Globulin Ratio 1.5 (0.9-2) 08/05/21: Lipase TNP 08/05/21 15: TSH 1.108 uIu/ml (0.300-4.500) 08/05/21 15:27 Urine Color Dark Yellow 08/05/21 20:10 Urine Appearance Cloudy (Clear) A 08/05/21 20:10 Urine pH 6.5 (4.5-7.5) 08/05/21 20:10 Ur Specific [place] 1.014 (1.000-1.030) 08/05/21 20:10 Urine Protein Negative (Negative) 08/05/21 20:10 Urine Glucose (UA) Negative (Negative) 08/05/21 20:10 Urine Ketones Trace (Negative) H 08/05/21 20:10 Urine Blood Negative (Negative) 08/05/21 20:10 Urine Nitrite Positive (Negative) A 08/05/21 20:10 Urine Bilirubin 3+ (Negative) H 08/05/21 20:10 Urine Urobilinogen Positive (Negative) H 08/05/21 20:10 Ur Leukocyte Esterase Trace (Negative) H 08/05/21 20:10 Urine WBC (Auto) 1-5 /hpf (0-5) 08/05/21 20:10 Urine RBC (Auto) 0-4 /hpf (0-4) 08/05/21 20:10 U Hyaline Cast (Auto) 1-5 /lpf (0-5) 08/05/21 20:10 U Epithel Cells (Auto) 10-20 /lpf (0-5) H 08/05/21 20:10 Urine Bacteria (Auto) Negative (Negative) 08/05/21 20:10 Urine Crystals Not Reportable 08/05/21 20:10 Calcium Oxalate Crystal Present (None Prsent) A 08/05/21 20:10 Acetaminophen < 3 ug/ml (10-30) L 08/05/21 15:27 Ethyl Alcohol mg/dL < 10.0 mg/dl (<10.0) 08/05/21 15:27 SARS-CoV-2, RNA, NAAT NEGATIVE (NEGATIVE) 08/05/21 19:32 Impressions Abdomen Ultrasound 08/05/21 17:17 US abdomen limited CLINICAL HISTORY: abnormal lft's. COMPARISON: None. TECHNIQUE: Multiple grayscale and color images of the right upper quadrant of the abdomen. FINDINGS: The study is limited by overlying bowel gas. Pancreas: The imaged portion of the pancreas is within normal limits with no focal mass or peripancreatic fluid collection identified. Liver: Liver is enlarged measuring 18.5 cm with diffuse increased echogenicity characteristic of fatty infiltration and hepatocellular disease. There is no evidence for a focal mass. There is no intrahepatic biliary duct dilatation. There is evidence for small amount of fluid surrounding the liver representing ascites. Gallbladder: The gallbladder is well distended with no evidence of cholelithiasis, wall thickening or pericholecystic edema. There was reportedly a negative sonographic Martinez sign. Common Bile Duct: (CBD): It is normal in size measuring 3 mm. Inferior Vena Cava (IVC): The imaged IVC is patent. Right kidney: There is no evidence for hydronephrosis, calculus or gross renal mass. The kidney is normal in size. IMPRESSION: 1. Hepatomegaly with diffuse fatty infiltration/hepatocellular disease. 2. Mild ascites. ACT 112: Negative or not required by law. Electronically signed by: Asif Lundy M.D. 08/05/2021 7:40 PM Code Status & VTE Plan Code Status Full code VTE Prophylaxis Plan VTE Prophylaxis will be ordered: Yes PG Care Time/CCT Total # of Minutes Spent Total Time Spent with Patient: Total time spent is greater than 50% in coordination of care (as documented) at patient's floor/unit and/or counseling patient: Coding Level of Care Code 42987 Initial Inpt Care Lvl 3 Diagnoses Alcoholic liver disease K70.9 Seizure R56.9 Alcohol abuse F10.10 Depression F32.9 Elevated troponin I level R77.8 Hyponatremia E87.1 Anemia D64.9 Fatty liver K76.0 Hypokalemia E87.6 Abnormal LFTs R79.89 UTI (urinary tract infection) N39.0
[2021-08-06] MEDS ORDERED: ATIVAN IV ALCOHOL WITHDRAWL IV PRN (00:04)
[2021-08-06] MEDS ORDERED: LORazepam 2 MG/1 ML VIAL IV PRN (00:04)
[2021-08-06] MEDS: THIAMINE HCL 100 MG TAB PO SCH ×2 (00:57→08:07)
[2021-08-06] MEDS: LORazepam 2 MG/1 ML VIAL IV PRN ×2 (00:57→21:00)
[2021-08-06] MEDS: FOLIC ACID 1 MG TAB PO SCH ×2 (00:57→08:06)
[2021-08-06] MEDS: SODIUM CHLORIDE 0.9% 1000ML 1,000 ML IV SCH ×2 (02:32→09:39)
--- NOTE | 2021-08-06 06:42 | Electrocardiogram Report ---
Test Reason : Blood Pressure : / mmHG Vent. Rate : 080 BPM Atrial Rate : 080 BPM P-R Int : 172 ms QRS Dur : 076 ms QT Int : 376 ms P-R-T Axes : 062 022 028 degrees QTc Int : 433 ms Normal sinus rhythm Normal ECG When compared with ECG of 29-JAN-2020 14:35, No significant change was found Confirmed by Sajan De Jesus ([id number]) on 08/06/2021 6:42:13 AM Referred By: REFERRED SELF Confirmed By:Sajan De Jesus
[2021-08-06 08:06] LABS: Basophils # (auto) 0.05 K/uL (0-0.2); Eosinophils # (auto) 0.02 K/uL (0-0.5); Eosinophils % (auto) 0.4 %; Hematocrit (blood only) 24.3 % (37-47); Hemoglobin 8.1 g/dL (12.0-16.0); Immature Granulocytes # (auto) 0.06 K/uL (0.00-0.02); Immature Granulocytes % (auto) 1.2 %; Lymphocytes % (auto) 13.8 %; Mean Corpuscular Hemoglobin 37.2 pg (25-34); Mean Corpuscular Hgb Conc 33.3 g/dL (32-36); Mean Corpuscular Volume 111.5 fL (80-100); Mean Platelet Volume 11.4 fL (7.4-10.4); Monocytes # (auto) 0.57 K/uL (0.11-0.59); Monocytes % (auto) 11.2 %; Neutrophils # (auto) 3.69 K/uL (1.4-6.5); Neutrophils % (auto) 72.4 %; Nucleated RBC # (auto) 0.09 K/uL (0-0); Nucleated RBC % (auto) 1.7 %; Platelet Count 174 K/uL (130-400); RDW Coefficient of Variation 16.9 % (11.5-14.5); RDW Standard Deviation 66.4 fL (36.4-46.3); Red Blood Count 2.18 M/uL (4.2-5.4); White Blood Count 5.09 K/uL (4.8-10.8)
[2021-08-06] MEDS: levETIRAcetam 500 MG TAB PO SCH ×2 (08:06→20:59)
[2021-08-06] MEDS: LEVOTHYROXINE SODIUM 75 MCG TABLET PO SCH (08:06)
[2021-08-06] MEDS: CYANOCOBALAMIN (B-12) 500 MCG TABLET PO SCH (08:06)
[2021-08-06 08:11] LABS: INR 1.2 (0.9-1.1); Partial Thromboplastin Ratio 1.2; Partial Thromboplastin Time 33.3 Seconds (21.0-31.0); Prothrombin Time 12.6 Seconds (9.0-12.0)
[2021-08-06 08:24] LABS: Albumin Globulin Ratio 1.4 (0.9-2); Albumin Level 2.6 gm/dl (3.4-5.0); BUN Creatinine Ratio 11.1 (10-20); Bilirubin,Total 15.2 mg/dl (0.2-1.0); Calcium 7.6 mg/dl (8.5-10.1); Creatinine Clr Calc Pharmacy 69.3 ml/min; Est GFR (African American) 114.6 ml/min; Est GFR (Non-African American) 98.9 ml/min; Globulin 1.8 gm/dl (2.5-4.0); Magnesium 1.9 mg/dl (1.7-2.4); Total Protein 4.4 gm/dl (6.0-8.3)
[2021-08-06 08:27] LABS: Troponin I High Sensitivity 28.5 pg/ml (0-14)
[2021-08-06 08:37] LABS: Polychromasia 1+
--- NOTE | 2021-08-06 10:42 | XCELERA ---
[id number]
--- NOTE | 2021-08-06 10:46 | CT Scan Report ---
CT abd pelvis wo con CLINICAL HISTORY: fatty liver, alcohol abuse TECHNIQUE: Helical axial images of the abdomen and pelvis were obtained. Automated dose lowering tech niques and/or adjustment according to patient size were utilized for this exam. This exam was perfor med without intravenous contrast. CT DOSE: 277.64 mGy.cm COMPARISON: Comparison is made to CT abdomen pelvis 11/29/2006 FINDINGS: Lower chest: No acute abnormality Liver: Pronounced hepatic steatosis is seen. Hepatomegaly is seen measuring 18 mm in the mid clavicul ar line. Gallbladder and biliary tree: No calcified gallstones. Normal caliber wall. No intra- or extrahepatic biliary ductal dilation. Pancreas: Unremarkable, no focal lesions. Spleen: Unremarkable. Adrenals: Unremarkable. Kidneys and ureters: Unremarkable. Bladder: Unremarkable. Reproductive organs: Unremarkable. Bowel: Unremarkable appearance of the bowel. The appendix is normal. Lymph nodes Retroperitoneal: Unremarkable. Mesenteric: Unremarkable. Pelvic: Prominent subcentimeter inguinal nodes are noted. Peritoneum: A small amount of free fluid is seen. Vessels: Unremarkable. Abdominal wall: Unremarkable. Bones: Unremarkable. IMPRESSION: Findings are compatible with hepatic steatosis and hepatomegaly with mild ascites. No evidence of acu te abnormality is seen. ACT 112: Negative or not required by law. Electronically signed by: Noah Pitts M.D. 08/06/2021 10:45 AM
--- NOTE | 2021-08-06 13:30 | Hospitalist Progress Note ---
Date of Service August 06, 2021 Assessment & Plan (1) Alcoholic liver disease: Plan: Alcoholic liver disease/Warnicke's encephalopathy/alcohol abuse 5 to 6 weeks of dizziness, vomiting, weakness. Was referred after outpatient labs showed high bilirubin. Daily vomiting. -Patient's primary symptoms are likely secondary to these diagnoses Endorses daily alcohol use of at least 3 drinks after work, last drink 08/05/2021. Denies withdrawal symptoms previously. Does have a seizure disorder with no seizure in the last year -Continue thiamine 100 mg p.o. daily Continue folic acid 1 mg p.o. every morning Received banana bag on admission Continues on PRADEEP S with 1 to milligram dose overnight Alcohol level negative on admission, Tylenol negative on admission Hepatitis serologies pending Bilirubin 15.2, AST 229, ALT 89. Alkaline phosphatase 368. - CT-A/P: Findings are compatible with hepatic steatosis and hepatomegaly with mild ascites. No evidence of acute abnormality is seen. No evidence of calcified gallstones, normal caliber gallbladder wall, no intra or extrahepatic biliary ductal dilation. Pronounced liver hepatic steatosis with hepatomegaly to 18 mm. Child Arce class C, 10-11points (bilirubin greater than 3, albumin less than 2.8, INR less than 1.7, ascites slight, no to slight encephalopathy) Maddrey discriminant function 31.8. + Benefit of glucocorticoid therapy, +prednisolone 40mg BID. Stop if no improvement at 7 days. Meld score 24, 19.63-month mortality - Echo: Diastolic dysfunction grade 2. Normal LV SF. Right atrium mild dilation. Mild mitral regurg. RVSP normal. (2) Seizure: Plan: Continue Keppra 500 mg p.o. twice daily (3) Alcohol abuse: Plan: Placed on AWSS protocol with IV Ativan as above (4) Depression: Plan: Continue escitalopram As noted above, patient has had bupropion discontinued recently (5) Elevated troponin I level: Plan: - Troponin 33.2 upon admission, down trended on recheck -No territorial ST segment changes on EKG MS demand ischemia Echo pending (6) Hyponatremia: Plan: Hyponatremia in the setting of poor intake? Beer potomania Sodium 123 on admission, increased to 130 with volume resuscitation, afternoon recheck pending for goal of no more than 8M EQ's per 24 hours. Corrected concurrent hyperkalemia Serum osmolality low, urine osmolality low (7) Anemia: Plan: Hyperchromic, macrocytic anemia Likely secondary to alcohol abuse Follow serially (8) Fatty liver: Plan: Abnormal LFTs will be followed, As noted on ultrasound Order follow-up CT to assess for possible cirrhosis (9) Hypokalemia: Plan: Potassium 3.2 upon admission Repleted --> 3.0 Magnesium pending Additional repletion ordered (10) Abnormal LFTs: Plan: See above (11) UTI (urinary tract infection): Plan: Follow urine culture and sensitivity Empiric ceftriaxone 1 g IV daily Admission and Anticipated Discharge Date Admission Date: August 05, 2021 Subjective Seen at bedside. Patient reports she feels shaky and anxious. Denies chest pain, chest pressure, lightheadedness, dizziness. Feels globally tired, but not focally weak. Endorses a history of seizure without recent seizure. Denies history of alcohol withdrawal, reports last drink was yesterday no abdominal pain. Review of Systems Review of Systems: All systems reviewed & are unremarkable except as noted in Subjective Physical Exam Physical Exam: General: Alert and oriented to name, place, and month. Tremulous on exam. Scleral icterus and jaundice is present HEENT: Atraumatic, normocephalic. Vision and hearing grossly intact. Pulm: CTAB A&P. -wheezes, -rales, -rhonchi. Symmetrical chest rise. No increase in work of breathing. No respiratory distress. Cardiac: RRR, -mrg. Radial pulses intact and symmetrical. Abdominal: Nontender, nondistended, soft. BS present. Results & Data Results & Data ([facility]) Vital Signs (Past 12 Hours) Vital Signs Temp Pulse Pulse Resp BP Pulse Ox 08/06/21 11:43 78 08/06/21 11:23 36.7 C 84 18 88/58 L 92 08/06/21 09:39 37.3 C 83 18 97/67 L 98 08/06/21 04:47 86 08/06/21 03:27 37.1 C 91 H 18 99/67 L 93 08/06/21 02:42 36.5 C 85 20 105/76 97 PG Care Time/CCT Total # of Minutes Spent Total Time Spent with Patient: Total time spent is greater than 50% in coordination of care (as documented) at patient's floor/unit and/or counseling patient: Coding Level of Care Code 88131 Subseq Hosp Care Lvl 3 Diagnoses Alcoholic liver disease K70.9 Seizure R56.9 Alcohol abuse F10.10 Depression F32.9 Elevated troponin I level R77.8 Hyponatremia E87.1 Anemia D64.9 Fatty liver K76.0 Hypokalemia E87.6 Abnormal LFTs R79.89 UTI (urinary tract infection) N39.0
[2021-08-06] MEDS ORDERED: POTASSIUM CHLORIDE CRTAB 20 MEQ TABCR PO SCH (14:00)
[2021-08-06] MEDS: POTASSIUM CHLORIDE / WTR 10 MEQ/100 ML PLCT IV SCH ×3 (14:09→16:33)
[2021-08-06 14:46] LABS: BUN Creatinine Ratio 10.8 (10-20); Calcium 7.7 mg/dl (8.5-10.1); Est GFR (African American) 103.5 ml/min; Est GFR (Non-African American) 89.3 ml/min; Potassium 2.8 mmol/L (3.5-5.1)
[2021-08-06] MEDS: NSS + 20MEQ KCL 20 MEQ/1,000 ML BAG IV SCH (16:32)
[2021-08-06] MEDS: POTASSIUM CHLORIDE CRTAB 20 MEQ TABCR PO SCH ×2 (18:42→21:00)
[2021-08-06 19:59] LABS: Potassium 3.9 mmol/L (3.5-5.1)
[2021-08-06] MEDS: cefTRIAXone SODIUM 1,000 MG in DEXTROSE 5% 50 ML IV SCH (20:59)
[2021-08-06] MEDS: prednisoLONE sod phosphate 15 MG/5 ML PO SCH (20:59)
[2021-08-06 21:40] LABS: BUN Creatinine Ratio 12.9 (10-20); Calcium 7.6 mg/dl (8.5-10.1); Creatinine Clr Calc Pharmacy 70.4 ml/min; Est GFR (African American) 115.2 ml/min; Est GFR (Non-African American) 99.4 ml/min
[2021-08-07] MEDS: NSS + 20MEQ KCL 20 MEQ/1,000 ML BAG IV SCH (02:33)
[2021-08-07] MEDS: POTASSIUM CHLORIDE CRTAB 20 MEQ TABCR PO SCH ×3 (02:36→09:12)
[2021-08-07 05:22] LABS: HBSAG NON-REACTIVE (NON-REACTIVE); Hepatitis A Antibody IgM NON-REACTIVE (NON-REACTIVE); Hepatitis B Core Antibody IgM NON-REACTIVE (NON-REACTIVE)
[2021-08-07] MEDS: LEVOTHYROXINE SODIUM 75 MCG TABLET PO SCH (05:54)
[2021-08-07] MEDS ORDERED: IBUPROFEN 200 MG TAB PO STA (06:09)
[2021-08-07 07:37] LABS: Basophils # (auto) 0.03 K/uL (0-0.2); Basophils % (auto) 0.5 %; Hematocrit (blood only) 27.2 % (37-47); Hemoglobin 8.9 g/dL (12.0-16.0); Immature Granulocytes # (auto) 0.09 K/uL (0.00-0.02); Immature Granulocytes % (auto) 1.5 %; Lymphocytes # (auto) 0.45 K/uL (1.2-3.4); Lymphocytes % (auto) 7.3 %; Mean Corpuscular Hemoglobin 37.6 pg (25-34); Mean Corpuscular Hgb Conc 32.7 g/dL (32-36); Mean Corpuscular Volume 114.8 fL (80-100); Monocytes # (auto) 0.38 K/uL (0.11-0.59); Monocytes % (auto) 6.2 %; Neutrophils # (auto) 5.22 K/uL (1.4-6.5); Neutrophils % (auto) 84.5 %; Nucleated RBC # (auto) 0.11 K/uL (0-0); Nucleated RBC % (auto) 1.7 %; Platelet Count 198 K/uL (130-400); RDW Coefficient of Variation 18.9 % (11.5-14.5); RDW Standard Deviation 76.1 fL (36.4-46.3); Red Blood Count 2.37 M/uL (4.2-5.4); White Blood Count 6.17 K/uL (4.8-10.8)
[2021-08-07 07:48] LABS: INR 1.3 (0.9-1.1); Partial Thromboplastin Ratio 1.2; Partial Thromboplastin Time 33.2 Seconds (21.0-31.0); Prothrombin Time 13.2 Seconds (9.0-12.0)
[2021-08-07 08:04] LABS: Albumin Globulin Ratio 1.5 (0.9-2); Albumin Level 2.8 gm/dl (3.4-5.0); BUN Creatinine Ratio 11.7 (10-20); Bilirubin,Total 18.8 mg/dl (0.2-1.0); Calcium 7.7 mg/dl (8.5-10.1); Creatinine Clr Calc Pharmacy 73.2 ml/min; Est GFR (African American) 116.4 ml/min; Est GFR (Non-African American) 100.5 ml/min; Globulin 1.9 gm/dl (2.5-4.0); Magnesium 1.8 mg/dl (1.7-2.4); Potassium 4.7 mmol/L (3.5-5.1); Total Protein 4.7 gm/dl (6.0-8.3)
[2021-08-07 08:10] LABS: Macrocytosis Present; Pappenheimer Bodies 1+; Polychromasia 1+
--- NOTE | 2021-08-07 08:16 | Hospitalist Progress Note ---
Date of Service August 07, 2021 Assessment & Plan (1) Alcoholic liver disease: Plan: Severe Alcohol Induced Hepatitis, Wernicke's encephalopathy 5 to 6 weeks of dizziness, vomiting, weakness. Was referred after outpatient labs showed high bilirubin. Daily vomiting. - Prior history of several beers/screwdrivers per day. In discussing w/ pts pt more depressed in last 3 months and drinking much more daily. Drinks less w/ beer due to filling up, handle of vodka lasts a few days although her also uses some. Last drink 08/05/2021. Denies withdrawal symptoms previously. Does have a seizure disorder with no seizure in the last year Ammonia normal on admission - Continue thiamine 100 mg p.o. daily Continue folic acid 1 mg p.o. every morning Received banana bag on admission Alcohol level negative on admission, Tylenol negative on admission Hepatitis B Negative, Hep C Ab negative Admit Bilirubin 15.2, AST 229, ALT 89. Alkaline phosphatase 368. - RUQ US: Pancreas: The imaged portion of the pancreas is within normal limits with no focal mass or peripancreatic fluid collection identified. Liver: Liver is enlarged measuring 18.5 cm with diffuse increased echogenicity characteristic of fatty infiltration and hepatocellular disease. There is no evidence for a focal mass. There is no intrahepatic biliary duct dilatation. There is evidence for small amount of fluid surrounding the liver representing ascites. Gallbladder: The gallbladder is well distended with no evidence of cholelithiasis, wall thickening or pericholecystic edema. There was reportedly a negative sonographic Martinez sign. - CT-A/P: Findings are compatible with hepatic steatosis and hepatomegaly with mild ascites. No evidence of acute abnormality is seen. No evidence of calcified gallstones, normal caliber gallbladder wall, no intra or extrahepatic biliary ductal dilation. Pronounced liver hepatic steatosis with hepatomegaly to 18 mm. Admit Child Arce: Class C, 10-11 points Admit Meld score 24, 19.6% 3-month mortality [facility] discriminant function 31.8. + Benefit of glucocorticoid therapy, +prednisolone 40mg daily started 08/06/21. Stop if no improvement at 7 days, Lille Score admit values: Age 56, albumin 2.6, bilirubin 15.2, creatinine 0.62, PT 12.6 - Pantoprazole 40mg GI PPx daily - Echo: Diastolic dysfunction grade 2. Normal LV SF. Right atrium mild dilation. Mild mitral regurg. RVSP normal. - Sodium up trended, currently in low 130s. Continue p.o. as tolerated and IVF support for poor intake. Calcium normalized. - Boost nutirtion supplementation AWSS: -08/06/21: 1x 1 mg, 1x 2mg, dose given. No 3mg doses - 08/07/21: No breakthrough doses required (2) Seizure: Plan: Continue Keppra 500 mg p.o. twice daily (3) Alcohol abuse: Plan: Placed on AWSS protocol with IV Ativan as above (4) Depression: Plan: Continue escitalopram As noted above, patient has had bupropion discontinued recently (5) Elevated troponin I level: Plan: - Troponin 33.2 upon admission, down trended on recheck -No territorial ST segment changes on EKG MS demand ischemia TTE: LVSF normal. Grade II diastolic dysfunction. LV wall motion normal. RA mild dilation. Mild IVC dilation. (6) Hyponatremia: Plan: Hyponatremia in the setting of poor intake? Beer potomania Sodium 123 on admission, increased to 130 with volume resuscitation, repletion slowed for no more than 8meq per now. Now improving and at 131 after ~36 hours Serum osmolality low, urine osmolality low - K low, normalized 08/06 eveningcontinue supplemental fluids and replete as needed (7) Anemia: Plan: Hyperchromic, macrocytic anemia Likely secondary to alcohol abuse Follow serially (8) Fatty liver: Plan: Abnormal LFTs will be followed, As noted on ultrasound Order follow-up CT to assess for possible cirrhosis (9) Hypokalemia: Plan: - Repleted as noted, normalized (10) Abnormal LFTs: Plan: See above (11) UTI (urinary tract infection): Plan: - Follow urine culture and sensitivity - Empiric ceftriaxone 1 g IV daily - UC pending Admission and Anticipated Discharge Date Admission Date: August 05, 2021 Subjective Patient thin, frail. Awakens easily at bedside. Continues to be tremulous, oriented to name, place, and date. Reports she is tired and feels weak, legs continue to feel weak. Somewhat tearful on discussion, discussed with patient was told about her condition and reports she "just does not feel good". When asked if she is interested in remaining sober patient drugs, nods in understanding that she is here because her liver is showing signs of damage likely related to alcohol. When asked what the driving factors for her are to drink, and what might help her to remain sober patient does report she is tired and wants to go back to sleep. When asked if she would like to meet with psych liaison to discuss depression which her had also appreciated having worsened over the previous few week patient shakes her head no, but does not elaborate on thoughts of whether she is depressed or if she thinks anything would help her depression shakes or said no to if she has ever had suicidal thoughts currently or presently, but does not her head when asked if she thinks she is depressed. Review of Systems Review of Systems: All systems reviewed & are unremarkable except as noted in Subjective Physical Exam Physical Exam: General: Appears frail, chronically ill. Alert and oriented to name, place, and month. Tremulous on exam. Scleral icterus and jaundice is present HEENT: Atraumatic, normocephalic. Vision and hearing grossly intact. Pulm: Diminished, but grossly clear bilaterally No increase in work of breathing. No respiratory distress. Cardiac: Regular, slightly tachycardic, -mrg. Radial pulses intact and symmetrical. Abdominal: Nontender, nondistended, soft. BS present. Extremities: Thin. Education Intern strength 5/5 bilaterally, ankle dorsiflexion/plantarflexion 5/5 bilaterally and sensation to soft touch intact in hands and feet. Patient is able to lift leg off of the bed antigravity bilaterally/flexion of the hip intact to antigravity. Results & Data Results & Data ([facility]) Vital Signs (Past 12 Hours) Vital Signs Temp Pulse Pulse Resp BP Pulse Ox 08/07/21 07:55 36.8 C 89 18 109/71 93 08/07/21 07:31 87 08/07/21 03:00 36.4 C L 90 18 107/70 92 08/07/21 00:52 94 H 08/06/21 22:55 37.4 C 93 H 20 115/77 91 PG Care Time/CCT Total # of Minutes Spent Total Time Spent with Patient: Total time spent is greater than 50% in coordination of care (as documented) at patient's floor/unit and/or counseling patient: Coding Level of Care Code 62567 Subseq Hosp Care Lvl 3 Diagnoses Alcoholic liver disease K70.9 Seizure R56.9 Alcohol abuse F10.10 Depression F32.9 Elevated troponin I level R77.8 Hyponatremia E87.1 Anemia D64.9 Anemia type: unspecified type Fatty liver K76.0 Hypokalemia E87.6 Abnormal LFTs R79.89 UTI (urinary tract infection) N30.00 Hematuria presence: without hematuria Urinary tract infection type: acute cystitis (1) UTI (urinary tract infection) Hematuria presence: without hematuria Urinary tract infection type: acute cystitis Qualified Code(s): N30.00 - Acute cystitis without hematuria (2) Anemia Anemia type: unspecified type Qualified Code(s): D64.9 - Anemia, unspecified
[2021-08-07] MEDS: THIAMINE HCL 100 MG TAB PO SCH (09:12)
[2021-08-07] MEDS: prednisoLONE sod phosphate 15 MG/5 ML PO SCH (09:12)
[2021-08-07] MEDS: levETIRAcetam 500 MG TAB PO SCH ×2 (09:12→20:10)
[2021-08-07] MEDS: CYANOCOBALAMIN (B-12) 500 MCG TABLET PO SCH (09:12)
[2021-08-07] MEDS: FOLIC ACID 1 MG TAB PO SCH (09:12)
[2021-08-07] MEDS: PANTOprazole 40 MG TAB PO SCH (15:24)
[2021-08-07] MEDS: cefTRIAXone SODIUM 1,000 MG in DEXTROSE 5% 50 ML IV SCH (21:10)
[2021-08-08] MEDS: LORazepam 2 MG/1 ML VIAL IV PRN ×2 (02:54→12:50)
[2021-08-08] MEDS ORDERED: OPTIRAY 320 100ml IV ONE (05:57)
[2021-08-08] MEDS: LEVOTHYROXINE SODIUM 75 MCG TABLET PO SCH (06:10)
--- NOTE | 2021-08-08 06:46 | Communication Note ---
Date of Service: August 08, 2021 Received communication from RN at 05:14 that patient was reporting 8 out of 10 pain in the upper abdomen. Stated patient was tender to touch and stiff to palpation. I evaluated the patient and corroborated these findings. Patient reported sudden onset 8 out of 10 abdominal pain. She stated that she has had this in the past prior to hospitalization and typically uses Pepto-Bismol for it. Denied chest pain, palpitations, nausea, vomiting, shortness of breath, headache, dizziness. On exam patient was very tender to palpation and guarding. Bowel sounds positive in all 4 quadrants. Regular rate and rhythm, no murmurs/gallops/rubs. Vital signs were stable. Ordered stat CT abdomen and pelvis. At time of documentation, imaging has been taken but read is pending. Will await official read.
--- NOTE | 2021-08-08 07:44 | CT Scan Report ---
CT abd pelvis IV con only CLINICAL HISTORY: abd pain with guarding TECHNIQUE: Helical axial images of the abdomen and pelvis were obtained and displayed. Automated dose lowering techniques and/or adjustment according to patient size were utilized for this exam. This e xam was performed with intravenous contrast. CT DOSE: 286.49 mGy.cm COMPARISON: Comparison is made to CT abdomen pelvis 08/06/2021 FINDINGS: Lower chest: Moderate bilateral pleural effusions are seen. Atelectasis is noted. Liver: Hepatic steatosis is noted. Gallbladder and biliary tree: No calcified gallstones. Normal caliber wall. No intra- or extrahepatic biliary ductal dilation. Pancreas: There is mild prominence of the pancreatic duct measuring up to 3.5 mm at the mid body. The re is questionable edema at the pancreatic head as well as peripancreatic fluid. Spleen: Unremarkable. Adrenals: Unremarkable. Kidneys and ureters: Unremarkable. Bladder: Unremarkable. Reproductive organs: Unremarkable. Bowel: Unremarkable appearance of the bowel. The appendix is normal. Lymph nodes Retroperitoneal: Unremarkable. Mesenteric: Unremarkable. Pelvic: Prominent subcentimeter inguinal nodes are noted. Peritoneum: Moderate ascites is seen, increased from prior exam. Vessels: Unremarkable. Abdominal wall: Unremarkable. Bones: Unremarkable. IMPRESSION: 1. Bilateral pleural effusions, increased from prior exam, with associated atelectasis. 2. Hepatic steatosis with increased ascites. Findings are compatible with acute hepatitis. 3. Questionable mild pancreatic head edema and perinephric pancreatic fluid may be reactive, superim posed pancreatitis cannot be entirely excluded. ACT 112: Negative or not required by law. Electronically signed by: Noah Pitts M.D. 08/08/2021 7:43 AM
[2021-08-08 08:41] LABS: Basophils # (auto) 0.04 K/uL (0-0.2); Basophils % (auto) 0.5 %; Eosinophils # (auto) 0.01 K/uL (0-0.5); Eosinophils % (auto) 0.1 %; Hematocrit (blood only) 29.9 % (37-47); Hemoglobin 9.7 g/dL (12.0-16.0); Immature Granulocytes # (auto) 0.22 K/uL (0.00-0.02); Immature Granulocytes % (auto) 2.6 %; Lymphocytes # (auto) 0.97 K/uL (1.2-3.4); Lymphocytes % (auto) 11.3 %; Mean Corpuscular Hgb Conc 32.4 g/dL (32-36); Mean Corpuscular Volume 117.3 fL (80-100); Mean Platelet Volume 10.7 fL (7.4-10.4); Monocytes # (auto) 0.91 K/uL (0.11-0.59); Monocytes % (auto) 10.6 %; Neutrophils # (auto) 6.43 K/uL (1.4-6.5); Neutrophils % (auto) 74.9 %; Nucleated RBC # (auto) 0.18 K/uL (0-0); Nucleated RBC % (auto) 2.1 %; Platelet Count 240 K/uL (130-400); RDW Coefficient of Variation 19.5 % (11.5-14.5); RDW Standard Deviation 80.6 fL (36.4-46.3); Red Blood Count 2.55 M/uL (4.2-5.4); White Blood Count 8.58 K/uL (4.8-10.8)
[2021-08-08 08:50] LABS: INR 1.2 (0.9-1.1); Partial Thromboplastin Time 26.4 Seconds (21.0-31.0); Prothrombin Time 12.6 Seconds (9.0-12.0)
[2021-08-08 09:00] LABS: Anisocytosis Present; Macrocytosis Present; Pappenheimer Bodies 1+; Polychromasia 1+
[2021-08-08 09:12] LABS: Albumin Globulin Ratio 1.5 (0.9-2); Albumin Level 2.7 gm/dl (3.4-5.0); BUN Creatinine Ratio 12.9 (10-20); Bilirubin,Total 18.8 mg/dl (0.2-1.0); Calcium 8.2 mg/dl (8.5-10.1); Creatinine Clr Calc Pharmacy 56.6 ml/min; Est GFR (African American) 110.7 ml/min; Est GFR (Non-African American) 95.5 ml/min; Globulin 1.8 gm/dl (2.5-4.0); Magnesium 1.9 mg/dl (1.7-2.4); Potassium 3.7 mmol/L (3.5-5.1); Total Protein 4.5 gm/dl (6.0-8.3)
[2021-08-08] MEDS: POTASSIUM CHLORIDE CRTAB 20 MEQ TABCR PO SCH (09:27)
[2021-08-08] MEDS: levETIRAcetam 500 MG TAB PO SCH ×2 (09:27→21:59)
[2021-08-08] MEDS: THIAMINE HCL 100 MG TAB PO SCH (09:27)
[2021-08-08] MEDS: CYANOCOBALAMIN (B-12) 500 MCG TABLET PO SCH (09:27)
[2021-08-08] MEDS: FOLIC ACID 1 MG TAB PO SCH (09:27)
[2021-08-08] MEDS: prednisoLONE sod phosphate 15 MG/5 ML PO SCH (10:49)
[2021-08-08] MEDS: PANTOprazole 40 MG TAB PO SCH (10:49)
--- NOTE | 2021-08-08 14:36 | Hospitalist Progress Note ---
Date of Service August 08, 2021 Assessment & Plan (1) Alcoholic liver disease: Plan: Severe Alcohol Induced Hepatitis, Wernicke's encephalopathy 5 to 6 weeks of dizziness, vomiting, weakness. Was referred after outpatient labs showed high bilirubin. Daily vomiting. - Prior history of several beers/screwdrivers per day. In discussing w/ pts pt more depressed in last 3 months and drinking much more daily. Drinks less w/ beer due to filling up, handle of vodka lasts a few days although her also uses some. Last drink 08/05/2021. Denies withdrawal symptoms previously. Does have a seizure disorder with no seizure in the last year Ammonia normal on admission - Continue thiamine 100 mg p.o. daily Continue folic acid 1 mg p.o. every morning Received banana bag on admission Alcohol level negative on admission, Tylenol negative on admission Hepatitis B Negative, Hep C Ab negative Admit Bilirubin 15.2, AST 229, ALT 89. Alkaline phosphatase 368. - RUQ US: Pancreas: The imaged portion of the pancreas is within normal limits with no focal mass or peripancreatic fluid collection identified. Liver: Liver is enlarged measuring 18.5 cm with diffuse increased echogenicity characteristic of fatty infiltration and hepatocellular disease. There is no evidence for a focal mass. There is no intrahepatic biliary duct dilatation. There is evidence for small amount of fluid surrounding the liver representing ascites. Gallbladder: The gallbladder is well distended with no evidence of cholelithiasis, wall thickening or pericholecystic edema. There was reportedly a negative sonographic Martinez sign. - CT-A/P: Findings are compatible with hepatic steatosis and hepatomegaly with mild ascites. No evidence of acute abnormality is seen. No evidence of calcified gallstones, normal caliber gallbladder wall, no intra or extrahepatic biliary ductal dilation. Pronounced liver hepatic steatosis with hepatomegaly to 18 mm. Admit Child Arce: Class C, 10-11 points Admit Meld score 24, 19.6% 3-month mortality [facility] discriminant function 31.8. + Benefit of glucocorticoid therapy, +prednisolone 40mg daily started 08/06/21. Stop if no improvement at 7 days, Lille Score admit values: Age 56, albumin 2.6, bilirubin 15.2, creatinine 0.62, PT 12.6 - Pantoprazole 40mg GI PPx daily - Echo: Diastolic dysfunction grade 2. Normal LV SF. Right atrium mild dilation. Mild mitral regurg. RVSP normal. - Sodium up trended, currently in low 130s. Continue p.o. as tolerated and IVF support for poor intake. Calcium normalized. - Boost nutirtion supplementation - LDL 282, very elevated. Statin/ezetimbe deferred in the setting of acute hepatitis with CP Class C. PCSK9 possible option once stabilizing 08/08 AST/ALT slightly downtrending, bilirubin remains elevated. Increased abdominal pain with CT as below. Occult blood pending. Hgb uptrending AWSS: -08/06/21: 1x 1 mg, 1x 2mg, dose given. No 3mg doses - 08/07/21: No breakthrough doses required - 08/08: 2mg (2) Seizure: Plan: Continue Keppra 500 mg p.o. twice daily (3) Pancreatitis: Plan: Possible alcohol induced pancreatitis Patient with sudden onset abdominal discomfort a.m. of 08/08, endorses had prior episodes which resolved with Pepto-Bismol. Does have a history of GERD. Remains on PPI - Lipase unable to be run in the setting of hyperbilirubinemia - Pt with worsened abdomen pain am 08/08 - CT-A/P: Bilateral pleural effusions, increased from prior exam, with associated atelectasis. Hepatic steatosis with increased ascites. Findings are compatible with acute hepatitis. Questionable mild pancreatic head edema and perinephric pancreatic fluid may be reactive, superimposed pancreatitis cannot be entirely excluded. CT and ultrasound as above, no evidence of cholelithiasis, ductal dilation, or obstructive disease. Suspect ETOH related Pain progressively improved on serial exam, minimal pain on afternoon exam (4) Alcohol abuse: Plan: Placed on AWSS protocol with IV Ativan as above (5) Depression: Plan: Continue escitalopram As noted above, patient has had bupropion discontinued recently (6) Elevated troponin I level: Plan: - Troponin 33.2 upon admission, down trended on recheck -No territorial ST segment changes on EKG MS demand ischemia TTE: LVSF normal. Grade II diastolic dysfunction. LV wall motion normal. RA mild dilation. Mild IVC dilation. (7) Hyponatremia: Plan: Hyponatremia in the setting of poor intake? Beer potomania Sodium 123 on admission, slowly up trended and currently 132 IV fluid stopped for mild effusion. PO intake improving (8) Anemia: Plan: Hyperchromic, macrocytic anemia Likely secondary to alcohol abuse Follow serially (9) Fatty liver: Plan: Abnormal LFTs will be followed, As noted on ultrasound CT as above (10) Hypokalemia: Plan: - Repleted as noted, normalized (11) Abnormal LFTs: Plan: See above (12) UTI (urinary tract infection): Plan: - Follow urine culture and sensitivity - Received empiric Rocephin Admission and Anticipated Discharge Date Admission Date: August 05, 2021 Subjective Seen at bedside in morning, patient had an episode of 8/10 abdominal pain which she thinks was similar to GERD pain for which she takes Pepto-Bismol in the past. At time of morning reassessment pain has improved and she reports she is fatigued and feels a little better but still very tired. Minimally conversational. Is oriented to place and day of the week today. Physical Exam Physical Exam: General: Appears frail, chronically ill. Alert and oriented to name, place, and month and day of week Tremulous on exam. Scleral icterus and jaundice is present HEENT: Atraumatic, normocephalic. Vision and hearing grossly intact. Pulm: Diminished, but grossly clear bilaterally No increase in work of breathing. No respiratory distress. Cardiac: Regular, slightly tachycardic, -mrg. Radial pulses intact and symmetrical. Abdominal: Epigastric tenderness with slight discomfort in right upper, right lower, and left upper quadrants without guarding/rebound. BS present. Extremities: Thin. Fishing Floats Assembler strength 5/5 bilaterally, ankle dorsiflexion/plantarflexion 5/5 bilaterally and sensation to soft touch intact in hands and feet. Patient is able to lift leg off of the bed antigravity bilaterally/flexion of the hip intact to antigravity. Results & Data Results & Data ([facility]) Vital Signs (Past 12 Hours) Vital Signs Temp Pulse Pulse Resp BP BP Pulse Ox 08/08/21 11:58 36.8 C 75 18 110/76 97 08/08/21 07:42 36.8 C 88 18 124/81 95 08/08/21 07:04 89 08/08/21 06:40 36.8 C 86 18 121/78 92 08/08/21 02:48 34.1 C L 88 18 117/83 95 PG Care Time/CCT Total # of Minutes Spent Total Time Spent with Patient: Total time spent is greater than 50% in coordination of care (as documented) at patient's floor/unit and/or counseling patient: Coding Level of Care Code 08168 Subseq Hosp Care Lvl 3 Diagnoses Alcoholic liver disease K70.9 Seizure R56.9 Alcohol abuse F10.10 Depression F32.9 Elevated troponin I level R77.8 Hyponatremia E87.1 Anemia D64.9 Anemia type: unspecified type Fatty liver K76.0 Hypokalemia E87.6 Abnormal LFTs R79.89 UTI (urinary tract infection) N30.00 Hematuria presence: without hematuria Urinary tract infection type: acute cystitis Pancreatitis K85.90 (1) UTI (urinary tract infection) Hematuria presence: without hematuria Urinary tract infection type: acute cystitis Qualified Code(s): N30.00 - Acute cystitis without hematuria (2) Anemia Anemia type: unspecified type Qualified Code(s): D64.9 - Anemia, unspecified
[2021-08-08] MEDS: ONDANSETRON INJ 2 MG/ML 2 ML VIAL IV PRN (21:59)
[2021-08-08] MEDS: MoRPHine SULFATE 2 MG/ML CARP IV PRN (21:59)
[2021-08-09] MEDS: MoRPHine SULFATE 4 MG/ML 1 ML CARP\\VIAL IV PRN (03:07)
[2021-08-09] MEDS: LEVOTHYROXINE SODIUM 75 MCG TABLET PO SCH (06:01)
[2021-08-09 06:59] LABS: Basophils # (auto) 0.04 K/uL (0-0.2); Basophils % (auto) 0.4 %; Eosinophils # (auto) 0.03 K/uL (0-0.5); Eosinophils % (auto) 0.3 %; Hematocrit (blood only) 30.1 % (37-47); Hemoglobin 9.7 g/dL (12.0-16.0); Immature Granulocytes # (auto) 0.21 K/uL (0.00-0.02); Immature Granulocytes % (auto) 2.3 %; Lymphocytes # (auto) 1.11 K/uL (1.2-3.4); Mean Corpuscular Hemoglobin 37.3 pg (25-34); Mean Corpuscular Hgb Conc 32.2 g/dL (32-36); Mean Corpuscular Volume 115.8 fL (80-100); Mean Platelet Volume 10.8 fL (7.4-10.4); Monocytes # (auto) 0.94 K/uL (0.11-0.59); Monocytes % (auto) 10.2 %; Neutrophils # (auto) 6.92 K/uL (1.4-6.5); Neutrophils % (auto) 74.8 %; Nucleated RBC # (auto) 0.18 K/uL (0-0); Platelet Count 232 K/uL (130-400); RDW Coefficient of Variation 19.7 % (11.5-14.5); RDW Standard Deviation 80.3 fL (36.4-46.3); White Blood Count 9.25 K/uL (4.8-10.8)
[2021-08-09 07:26] LABS: Albumin Globulin Ratio 1.6 (0.9-2); Albumin Level 2.5 gm/dl (3.4-5.0); BUN Creatinine Ratio 19.4 (10-20); Bilirubin,Total 19.3 mg/dl (0.2-1.0); Calcium 7.7 mg/dl (8.5-10.1); Creatinine Clr Calc Pharmacy 69.1 ml/min; Est GFR (African American) 112.3 ml/min; Est GFR (Non-African American) 96.9 ml/min; Globulin 1.6 gm/dl (2.5-4.0); Potassium 3.6 mmol/L (3.5-5.1); Total Protein 4.1 gm/dl (6.0-8.3)
[2021-08-09 07:27] LABS: Anisocytosis Present; Macrocytosis Present; Polychromasia 1+
[2021-08-09] MEDS: THIAMINE HCL 100 MG TAB PO SCH (07:40)
[2021-08-09] MEDS: FOLIC ACID 1 MG TAB PO SCH (07:40)
[2021-08-09] MEDS: CYANOCOBALAMIN (B-12) 500 MCG TABLET PO SCH (07:40)
[2021-08-09] MEDS: PANTOprazole 40 MG TAB PO SCH (07:40)
[2021-08-09] MEDS: POTASSIUM CHLORIDE CRTAB 20 MEQ TABCR PO SCH (07:40)
[2021-08-09] MEDS: levETIRAcetam 500 MG TAB PO SCH ×2 (07:40→21:12)
[2021-08-09] MEDS: prednisoLONE sod phosphate 15 MG/5 ML PO SCH (07:41)
--- NOTE | 2021-08-09 08:49 | Gastrointestinal Consultation ---
Date of Consultation August 09, 2021 Assessment & Plan (1) Abnormal LFTs: Elevated LFTs: Patient presented with total bilirubin 15.3, AST 261, ALT 102, alk phos 399 08/05/2021. This morning her labs are total bilirubin 19.3, AST 186, ALT 79, alk phos 325. She has been on prednisone 40 mg p.o. daily beginning 08/08/2021. She does have history of regular daily alcohol use. CT and ultrasound of the abdomen have been obtained while inpatient and demonstrated no intra or extrahepatic biliary ductal dilatation or obstructive process. She has had laboratory testing to include hepatitis AB and C serology which were all negative. Will obtain additional labs including PT/INR today and daily, ammonia, CMV, EBV, SHERRY, AMA, smooth muscle antibody, LMKA. Have asked pharmacy to check patient inpatient and outpatient medication lists to evaluate for medication contributors. Alcohol abuse: Reports her daily alcohol intake and states that she drinks approximately 3 alcoholic beverages each evening. Never had withdrawal per her report. Pancreatitis: Questionable mild pancreatic head edema and perinephric pancreatic fluid may be reactive, superimposed pancreatitis cannot be entirely excluded. Likely alcohol induced. Denies pain this morning Case reviewed with Dr. Millard. Please refer to supervising physician addendum for further recommendations. I have spent 30 minutes of discrete time performing the activities of this visit which include but are not limited to review of the medical record, obtaining a history, physical exam, and entering information in the electronic record. (2) Alcohol abuse: (3) Pancreatitis: Supervising Physician Co-Signing Physician Notes I have seen and examined the patient. I agree with note above by MARKELL Caro except as noted below. HPI Pt wakes to her name and mumbles but not really any helpful information from her. Nurse states her mental status has been this way for couple days off and on. CT 08/08 fatty liver and increasing ascites. PE Abdomen pos bs, soft. A/P elevated LFTS--per pharmacy no outpt meds to explain. More serologies pending but with AST > ALT suspect ETOH hepatitis. AST and ALT are improving which is good. TB improvement can lag. Would continue Prednisolone but follow PT INR daily as a surrogate for liver decompensation. Would like to be able to follow ammonia daily but that is send out because of high ammonia. Ordered one for today as another data point but likely not back for few days would be my guess. As the supervising physician, I , Manolo Millard MD have spent 23 minutes of discrete time performing the activities of this visit which include but not limited to review of the medical records, obtaining a history, physical exam and entering information in the electronic record. MARKELL Caro has reported spending 30 minutes of discrete time with the activities of this visit. History of Present Illness Reason for Consultation: hepatitis Attending Physician: Osiel Jeronimo MD History of Present Illness The patient is a pleasant 56-year-old female with a past medical history to include seizure disorder, hypothyroidism, depression, GERD, vitamin B12 deficiency who presented to the emergency department due to dizziness, vomiting, weakness, abnormal laboratory testing. She was subsequently admitted due to electrolyte abnormalities, elevated troponin, alcoholic liver disease. The GI service was consulted as patient has not had great response to prednisone. On exam/interview today, the patient is sleeping. She does awaken after several attempts with verbal stimuli. She reports that she did come to the ER because she was dizzy and was a unable to walk on her own. She was having increased falls at home. She states she is experiencing pain in her back and sides. Is improved when she is lying flat. Denies any nausea or vomiting. No fever or chills. She does report she has had weight loss at home although she is unsure how much. Reports her bowel movements are varied and she thinks she has 1 every couple days. Denies any melena or hematochezia in her stool. She follows with Dr. De Leon for primary care. Reports her last colonoscopy was proximately 3 to 4 years ago. She smokes daily to most days per her report. Reports that she consumes 2-3 alcoholic beverages each evening. She denies any recreational drug use including marijuana. She is . She has 3 living children, 1 child. 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 Allergies Allergy/AdvReac Type Severity Reaction Status Date / Time No Known Allergies Allergy Unknown Verified 11/07/17 17:50 Home Medications Medication Instructions Recorded Confirmed Type bupropion HCl 300 mg 24 hr tablet, 300 mg PO QPM 11/07/17 08/05/21 History extended release levetiracetam 500 mg tablet 500 mg PO BID 28 Days #56 tab 01/29/20 08/05/21 Rx (Keppra) levothyroxine 75 mcg tablet 75 mcg PO QAM 05/28/20 08/05/21 History mecobalamin (vitamin B12) 1,000 1,000 mcg PO QAM 08/05/21 08/05/21 History mcg chewable tablet (B12 Active) pantoprazole 40 mg tablet,delayed 40 mg PO QAM 08/05/21 08/05/21 History release Patient History Medical History (Updated 08/08/21 @ 15:55 by Osiel Jeronimo MD) Alcohol abuse Alcoholic liver disease Depression Encounter for gynecological examination without abnormal finding Menopause Mild cervical dysplasia, histologically confirmed Postmenopausal hormone replacement therapy Social History Smoking Status: Current some day smoker Tobacco Type: Cigarettes Second Hand Exposure: No; Do You Dip or Chew Tobacco: No; Tobacco Cessation Education Requested by Patient: No Hx Alcohol Use: Yes Alcohol type: beer Hx Substance Use: No Preferred Language: Divehi Communication Ability: Effective Communication Ability Comment: Not able to comprehend at this time. Withdrawling from alcohol Plate Fitter Required: No Beliefs That Will Affect Care: None marital status: Feels Safe at Home: Yes Safety Concerns: Feels Safe At This Time Assistive Devices: None Review of Systems Review of Systems: All systems reviewed & are unremarkable except as noted in Subjective Physical Exam Constitutional: WD/WN, vitals as above Eyes: jaundiced sclera Respiratory: normal respiratory effort, lungs clear to auscultation Cardiovascular: RRR, no murmur, no edema Gastrointestinal (Abdomen): Inspection/Auscultation: abdomen normal to inspection and normal bowel sounds Percussion/Palpation: abdomen soft; abdomen nontender, no guarding and abdomen not rigid Skin: + jaundice Psychiatric: Orientation: alert and oriented x 3 Results & Data ([facility]) Vital Signs (Past 12 Hours) Vital Signs Temp Pulse Pulse Resp BP BP Pulse Ox 08/09/21 08:19 36.8 C 81 18 107/73 95 08/09/21 07:26 83 08/09/21 03:42 36.6 C 80 20 101/70 92 08/09/21 00:00 79 08/08/21 23:11 36.8 C 80 20 100/72 95 Laboratory Results Laboratory Results - last 72 hr 08/06/21 08/06/21 08/06/21 06:49 06:49 08:26 WBC RBC Hgb Hct MCV MCH MCHC RDW Std Deviation RDW Coeff of Wilbur Plt Count MPV Immature Gran % (Auto) Neut % (Auto) Lymph % (Auto) Dawson % (Auto) Eos % (Auto) Baso % (Auto) Neut # (Auto) Lymph # (Auto) Dawson # (Auto) Eos # (Auto) Baso # (Auto) Immature Gran # (Auto) Absolute Nucleated RBC Nucleated RBC % (auto) Polychromasia Anisocytosis Macrocytosis Pappenheimer Bodies PT INR APTT PTT Ratio Sodium Potassium Chloride Carbon Dioxide Anion Gap BUN Creatinine Est Cr Clr Drug Dosing Est GFR ( Amer) Est GFR (Non-Af Amer) BUN/Creatinine Ratio Glucose Osmolality 267 L Calcium Magnesium Total Bilirubin AST ALT Alkaline Phosphatase Total Protein Albumin Globulin Albumin/Globulin Ratio Triglycerides Cholesterol LDL Cholesterol, Calc VLDL Cholesterol, Calc HDL Cholesterol Cholesterol/HDL Ratio Urine Osmolality 147 L Hepatitis A IgM Ab NON-REACTIVE Hep Bs Antigen NON-REACTIVE Hep Bs Ag Confirmation TNP Hep B Core IgM Ab NON-REACTIVE Hepatitis C Ab (EIA) NON-REACTIVE Hep C Ab Signal/Cutoff 0.01 08/06/21 08/06/21 08/07/21 14:05 19:08 07:15 WBC 6.17 RBC 2.37 L Hgb 8.9 L Hct 27.2 L MCV 114.8 H MCH 37.6 H MCHC 32.7 RDW Std Deviation 76.1 H RDW Coeff of Wilbur 18.9 H Plt Count 198 MPV 11.0 H Immature Gran % (Auto) 1.5 Neut % (Auto) 84.5 Lymph % (Auto) 7.3 Dawson % (Auto) 6.2 Eos % (Auto) 0.0 Baso % (Auto) 0.5 Neut # (Auto) 5.22 Lymph # (Auto) 0.45 L Dawson # (Auto) 0.38 Eos # (Auto) 0.00 Baso # (Auto) 0.03 Immature Gran # (Auto) 0.09 H Absolute Nucleated RBC 0.11 H Nucleated RBC % (auto) 1.7 Polychromasia 1+ Anisocytosis Macrocytosis Present Pappenheimer Bodies 1+ PT INR APTT PTT Ratio Sodium 129 L 128 L Potassium 2.8 L 3.9 D Chloride 95 L 97 L Carbon Dioxide 25 22 Anion Gap 9 9 BUN 8 8 Creatinine 0.74 0.62 Est Cr Clr Drug Dosing 59.0 70.4 Est GFR ( Amer) 103.5 115.2 Est GFR (Non-Af Amer) 89.3 99.4 BUN/Creatinine Ratio 10.8 12.9 Glucose 85 64 L Osmolality Calcium 7.7 L 7.6 L Magnesium Total Bilirubin AST ALT Alkaline Phosphatase Total Protein Albumin Globulin Albumin/Globulin Ratio Triglycerides Cholesterol LDL Cholesterol, Calc VLDL Cholesterol, Calc HDL Cholesterol Cholesterol/HDL Ratio Urine Osmolality Hepatitis A IgM Ab Hep Bs Antigen Hep Bs Ag Confirmation Hep B Core IgM Ab Hepatitis C Ab (EIA) Hep C Ab Signal/Cutoff 08/07/21 08/07/21 08/07/21 07:15 07:15 07:15 WBC RBC Hgb Hct MCV MCH MCHC RDW Std Deviation RDW Coeff of Wilbur Plt Count MPV Immature Gran % (Auto) Neut % (Auto) Lymph % (Auto) Dawson % (Auto) Eos % (Auto) Baso % (Auto) Neut # (Auto) Lymph # (Auto) Dawson # (Auto) Eos # (Auto) Baso # (Auto) Immature Gran # (Auto) Absolute Nucleated RBC Nucleated RBC % (auto) Polychromasia Anisocytosis Macrocytosis Pappenheimer Bodies PT 13.2 H INR 1.3 H APTT 33.2 H PTT Ratio 1.2 Sodium 131 L Potassium 4.7 D Chloride 101 Carbon Dioxide 18 L Anion Gap 12 H BUN 7 Creatinine 0.60 Est Cr Clr Drug Dosing 73.2 Est GFR ( Amer) 116.4 Est GFR (Non-Af Amer) 100.5 BUN/Creatinine Ratio 11.7 Glucose 100 H Osmolality Calcium 7.7 L Magnesium 1.8 Total Bilirubin 18.8 H AST 237 H ALT 93 H Alkaline Phosphatase 386 H Total Protein 4.7 L Albumin 2.8 L Globulin 1.9 L Albumin/Globulin Ratio 1.5 Triglycerides 197 H Cholesterol 329 H LDL Cholesterol, Calc 280 VLDL Cholesterol, Calc 39 H HDL Cholesterol 10 Cholesterol/HDL Ratio 35.0 H Urine Osmolality Hepatitis A IgM Ab Hep Bs Antigen Hep Bs Ag Confirmation Hep B Core IgM Ab Hepatitis C Ab (EIA) Hep C Ab Signal/Cutoff 08/08/21 08/08/21 08/08/21 08:01 08:01 08:01 WBC 8.58 RBC 2.55 L Hgb 9.7 L Hct 29.9 L MCV 117.3 H MCH 38.0 H MCHC 32.4 RDW Std Deviation 80.6 H RDW Coeff of Wilbur 19.5 H Plt Count 240 MPV 10.7 H Immature Gran % (Auto) 2.6 Neut % (Auto) 74.9 Lymph % (Auto) 11.3 Dawson % (Auto) 10.6 Eos % (Auto) 0.1 Baso % (Auto) 0.5 Neut # (Auto) 6.43 Lymph # (Auto) 0.97 L Dawson # (Auto) 0.91 H Eos # (Auto) 0.01 Baso # (Auto) 0.04 Immature Gran # (Auto) 0.22 H Absolute Nucleated RBC 0.18 H Nucleated RBC % (auto) 2.1 Polychromasia 1+ Anisocytosis Present Macrocytosis Present Pappenheimer Bodies 1+ PT 12.6 H INR 1.2 H APTT 26.4 PTT Ratio 1.0 Sodium 132 L Potassium 3.7 D Chloride 101 Carbon Dioxide 19 L Anion Gap 12 H BUN 9 Creatinine 0.70 Est Cr Clr Drug Dosing 56.6 Est GFR ( Amer) 110.7 Est GFR (Non-Af Amer) 95.5 BUN/Creatinine Ratio 12.9 Glucose 88 Osmolality Calcium 8.2 L Magnesium 1.9 Total Bilirubin 18.8 H AST 212 H ALT 86 H Alkaline Phosphatase 356 H Total Protein 4.5 L Albumin 2.7 L Globulin 1.8 L Albumin/Globulin Ratio 1.5 Triglycerides Cholesterol LDL Cholesterol, Calc VLDL Cholesterol, Calc HDL Cholesterol Cholesterol/HDL Ratio Urine Osmolality Hepatitis A IgM Ab Hep Bs Antigen Hep Bs Ag Confirmation Hep B Core IgM Ab Hepatitis C Ab (EIA) Hep C Ab Signal/Cutoff 08/09/21 08/09/21 05:20 05:20 WBC 9.25 RBC 2.60 L Hgb 9.7 L Hct 30.1 L MCV 115.8 H MCH 37.3 H MCHC 32.2 RDW Std Deviation 80.3 H RDW Coeff of Wilbur 19.7 H Plt Count 232 MPV 10.8 H Immature Gran % (Auto) 2.3 Neut % (Auto) 74.8 Lymph % (Auto) 12.0 Dawson % (Auto) 10.2 Eos % (Auto) 0.3 Baso % (Auto) 0.4 Neut # (Auto) 6.92 H Lymph # (Auto) 1.11 L Dawson # (Auto) 0.94 H Eos # (Auto) 0.03 Baso # (Auto) 0.04 Immature Gran # (Auto) 0.21 H Absolute Nucleated RBC 0.18 H Nucleated RBC % (auto) 2.0 Polychromasia 1+ Anisocytosis Present Macrocytosis Present Pappenheimer Bodies PT INR APTT PTT Ratio Sodium 131 L Potassium 3.6 Chloride 100 Carbon Dioxide 22 Anion Gap 9 BUN 13 Creatinine 0.67 Est Cr Clr Drug Dosing 69.1 Est GFR ( Amer) 112.3 Est GFR (Non-Af Amer) 96.9 BUN/Creatinine Ratio 19.4 Glucose 94 Osmolality Calcium 7.7 L Magnesium Total Bilirubin 19.3 H AST 186 H ALT 79 H Alkaline Phosphatase 325 H Total Protein 4.1 L Albumin 2.5 L Globulin 1.6 L Albumin/Globulin Ratio 1.6 Triglycerides Cholesterol LDL Cholesterol, Calc VLDL Cholesterol, Calc HDL Cholesterol Cholesterol/HDL Ratio Urine Osmolality Hepatitis A IgM Ab Hep Bs Antigen Hep Bs Ag Confirmation Hep B Core IgM Ab Hepatitis C Ab (EIA) Hep C Ab Signal/Cutoff Diagnostic Findings Abdomen/Pelvis CT 08/06/21 03:30 CT abd pelvis wo con CLINICAL HISTORY: fatty liver, alcohol abuse TECHNIQUE: Helical axial images of the abdomen and pelvis were obtained. Automated dose lowering techniques and/or adjustment according to patient size were utilized for this exam. This exam was performed without intravenous contrast. CT DOSE: 277.64 mGy.cm COMPARISON: Comparison is made to CT abdomen pelvis 11/29/2006 FINDINGS: Lower chest: No acute abnormality Liver: Pronounced hepatic steatosis is seen. Hepatomegaly is seen measuring 18 mm in the mid clavicular line. Gallbladder and biliary tree: No calcified gallstones. Normal caliber wall. No intra- or extrahepatic biliary ductal dilation. Pancreas: Unremarkable, no focal lesions. Spleen: Unremarkable. Adrenals: Unremarkable. Kidneys and ureters: Unremarkable. Bladder: Unremarkable. Reproductive organs: Unremarkable. Bowel: Unremarkable appearance of the bowel. The appendix is normal. Lymph nodes Retroperitoneal: Unremarkable. Mesenteric: Unremarkable. Pelvic: Prominent subcentimeter inguinal nodes are noted. Peritoneum: A small amount of free fluid is seen. Vessels: Unremarkable. Abdominal wall: Unremarkable. Bones: Unremarkable. IMPRESSION: Findings are compatible with hepatic steatosis and hepatomegaly with mild ascites. No evidence of acute abnormality is seen. ACT 112: Negative or not required by law. Electronically signed by: Noah Pitts M.D. 08/06/2021 10:45 AM Abdomen/Pelvis CT 08/08/21 05:29 CT abd pelvis IV con only CLINICAL HISTORY: abd pain with guarding TECHNIQUE: Helical axial images of the abdomen and pelvis were obtained and displayed. Automated dose lowering techniques and/or adjustment according to patient size were utilized for this exam. This exam was performed with intravenous contrast. CT DOSE: 286.49 mGy.cm COMPARISON: Comparison is made to CT abdomen pelvis 08/06/2021 FINDINGS: Lower chest: Moderate bilateral pleural effusions are seen. Atelectasis is noted. Liver: Hepatic steatosis is noted. Gallbladder and biliary tree: No calcified gallstones. Normal caliber wall. No intra- or extrahepatic biliary ductal dilation. Pancreas: There is mild prominence of the pancreatic duct measuring up to 3.5 mm at the mid body. There is questionable edema at the pancreatic head as well as peripancreatic fluid. Spleen: Unremarkable. Adrenals: Unremarkable. Kidneys and ureters: Unremarkable. Bladder: Unremarkable. Reproductive organs: Unremarkable. Bowel: Unremarkable appearance of the bowel. The appendix is normal. Lymph nodes Retroperitoneal: Unremarkable. Mesenteric: Unremarkable. Pelvic: Prominent subcentimeter inguinal nodes are noted. Peritoneum: Moderate ascites is seen, increased from prior exam. Vessels: Unremarkable. Abdominal wall: Unremarkable. Bones: Unremarkable. IMPRESSION: 1. Bilateral pleural effusions, increased from prior exam, with associated atelectasis. 2. Hepatic steatosis with increased ascites. Findings are compatible with acute hepatitis. 3. Questionable mild pancreatic head edema and perinephric pancreatic fluid may be reactive, superimposed pancreatitis cannot be entirely excluded. ACT 112: Negative or not required by law. Electronically signed by: Noah Pitts M.D. 08/08/2021 7:43 AM
[2021-08-09] MEDS: LORazepam 2 MG/1 ML VIAL IV PRN (10:53)
--- NOTE | 2021-08-09 14:44 | Hospitalist Progress Note ---
Date of Service August 09, 2021 Assessment & Plan (1) Alcoholic liver disease: Plan: Severe Alcohol Induced Hepatitis, Wernicke's encephalopathy 5 to 6 weeks of dizziness, vomiting, weakness. Was referred after outpatient labs showed high bilirubin. Daily vomiting. - Prior history of several beers/screwdrivers per day. In discussing w/ pts pt more depressed in last 3 months and drinking much more daily. Drinks less w/ beer due to filling up, handle of vodka lasts a few days although her also uses some. Last drink 08/05/2021. Denies withdrawal symptoms previously. Does have a seizure disorder with no seizure in the last year Ammonia normal on admission - Continue thiamine 100 mg p.o. daily Continue folic acid 1 mg p.o. every morning Received banana bag on admission Alcohol level negative on admission, Tylenol negative on admission Hepatitis B Negative, Hep C Ab negative Admit Bilirubin 15.2, AST 229, ALT 89. Alkaline phosphatase 368. - RUQ US: Pancreas: The imaged portion of the pancreas is within normal limits with no focal mass or peripancreatic fluid collection identified. Liver: Liver is enlarged measuring 18.5 cm with diffuse increased echogenicity characteristic of fatty infiltration and hepatocellular disease. There is no evidence for a focal mass. There is no intrahepatic biliary duct dilatation. There is evidence for small amount of fluid surrounding the liver representing ascites. Gallbladder: The gallbladder is well distended with no evidence of cholelithiasis, wall thickening or pericholecystic edema. There was reportedly a negative sonographic Martinez sign. - CT-A/P: Findings are compatible with hepatic steatosis and hepatomegaly with mild ascites. No evidence of acute abnormality is seen. No evidence of calcified gallstones, normal caliber gallbladder wall, no intra or extrahepatic biliary ductal dilation. Pronounced liver hepatic steatosis with hepatomegaly to 18 mm. Admit Child Arce: Class C, 10-11 points Admit Meld score 24, 19.6% 3-month mortality [facility] discriminant function 31.8. + Benefit of glucocorticoid therapy, +prednisolone 40mg daily started 08/06/21. Stop if no improvement at 7 days, Lille Score admit values: Age 56, albumin 2.6, bilirubin 15.2, creatinine 0.62, PT 12.6 - Pantoprazole 40mg GI PPx daily - Echo: Diastolic dysfunction grade 2. Normal LV SF. Right atrium mild dilation. Mild mitral regurg. RVSP normal. - Sodium up trended, currently in low 130s. Continue p.o. as tolerated and IVF support for poor intake. Calcium normalized. - Boost nutirtion supplementation Bilirubin continues to be very elevated, transaminases slightly improved - GI consulted. repeat ammonia and + CMB, EBV, SHERRY, AMA, SM-Ab, LMKA added and pending. Appreciate recommendations. - LDL 282, very elevated. Statin/ezetimbe deferred in the setting of acute hepatitis with CP Class C. PCSK9 possible option once stabilizing (2) Seizure: Plan: Continue Keppra 500 mg p.o. twice daily (3) Pancreatitis: Plan: Possible alcohol induced pancreatitis Patient with sudden onset abdominal discomfort a.m. of 08/08, endorses had prior episodes which resolved with Pepto-Bismol. Does have a history of GERD. Remains on PPI - Lipase unable to be run in the setting of hyperbilirubinemia - Pt with worsened abdomen pain am 08/08 - CT-A/P: Bilateral pleural effusions, increased from prior exam, with associated atelectasis. Hepatic steatosis with increased ascites. Findings are compatible with acute hepatitis. Questionable mild pancreatic head edema and perinephric pancreatic fluid may be reactive, superimposed pancreatitis cannot be entirely excluded. CT and ultrasound as above, no evidence of cholelithiasis, ductal dilation, or obstructive disease. Suspect ETOH related Pain progressively improved on serial exam. Nontender on 08/09 exam (4) Alcohol abuse: Plan: Placed on AWSS protocol with IV Ativan as above (5) Depression: Plan: Continue escitalopram As noted above, patient has had bupropion discontinued recently (6) Elevated troponin I level: Plan: - Troponin 33.2 upon admission, down trended on recheck -No territorial ST segment changes on EKG MS demand ischemia TTE: LVSF normal. Grade II diastolic dysfunction. LV wall motion normal. RA mild dilation. Mild IVC dilation. (7) Hyponatremia: Plan: Hyponatremia in the setting of poor intake? Beer potomania Sodium 123 on admission, slowly up trended and currently 132 IV fluid stopped for mild effusion. PO intake improving (8) Anemia: Plan: Hyperchromic, macrocytic anemia Likely secondary to alcohol abuse Follow serially (9) Fatty liver: Plan: Abnormal LFTs will be followed, As noted on ultrasound CT as above (10) Hypokalemia: Plan: - Repleted as noted, normalized (11) Abnormal LFTs: Plan: See above (12) UTI (urinary tract infection): Plan: - Follow urine culture and sensitivity - Received empiric Rocephin Admission and Anticipated Discharge Date Admission Date: August 05, 2021 Subjective Remains curled up in bed, minimally conversant. Does awaken easily. Denies pain at time of morning assessment. Sleeping comfortably awakens easily but again does not give meaningful conversation on afternoon reassessment. Review of Systems Review of Systems: All systems reviewed & are unremarkable except as noted in Subjective Physical Exam Physical Exam: General: Appears frail, chronically ill. Alert and oriented to name and place today, does not give day of week today. Oral icterus and jaundice remain present HEENT: Atraumatic, normocephalic. Vision and hearing grossly intact. Pulm: Diminished, but grossly clear bilaterally No increase in work of breathing. No respiratory distress. Cardiac: Regular, slightly tachycardic, -mrg. Radial pulses intact and symme trical. Abdominal: Abdomen is nontender on reexamination today without rebound/guarding BS present. Extremities: Thin. Endorses intact sensation to soft touch in hands and feet. Results & Data Results & Data ([facility]) Vital Signs (Past 12 Hours) Vital Signs Temp Pulse Pulse Resp BP BP Pulse Ox 08/09/21 11:06 36.9 C 78 18 114/77 94 08/09/21 08:19 36.8 C 81 18 107/73 95 08/09/21 07:26 83 08/09/21 03:42 36.6 C 80 20 101/70 92 PG Care Time/CCT Total # of Minutes Spent Total Time Spent with Patient: Total time spent is greater than 50% in coordination of care (as documented) at patient's floor/unit and/or counseling patient: Coding Level of Care Code 89819 Subseq Hosp Care Lvl 3 Diagnoses Alcoholic liver disease K70.9 Seizure R56.9 Pancreatitis K85.90 Alcohol abuse F10.10 Depression F32.9 Elevated troponin I level R77.8 Hyponatremia E87.1 Anemia D64.9 Anemia type: unspecified type Fatty liver K76.0 Hypokalemia E87.6 Abnormal LFTs R79.89 UTI (urinary tract infection) N30.00 Hematuria presence: without hematuria Urinary tract infection type: acute cystitis (1) UTI (urinary tract infection) Hematuria presence: without hematuria Urinary tract infection type: acute cystitis Qualified Code(s): N30.00 - Acute cystitis without hematuria (2) Anemia Anemia type: unspecified type Qualified Code(s): D64.9 - Anemia, unspecified
[2021-08-09] MEDS ORDERED: LORazepam 2 MG in SYRINGE 1 ML IV PRN (17:33)
[2021-08-09] MEDS ORDERED: LORazepam 3 MG in SYRINGE 1.5 ML IV PRN (17:33)
[2021-08-09] MEDS ORDERED: ATIVAN IV ALCOHOL WITHDRAWL IV PRN (17:33)
[2021-08-09] MEDS ORDERED: LORazepam 1 MG in SYRINGE 0.5 ML IV PRN (17:33)
[2021-08-10] MEDS: LEVOTHYROXINE SODIUM 75 MCG TABLET PO SCH (06:05)
[2021-08-10] MEDS: POTASSIUM CHLORIDE CRTAB 20 MEQ TABCR PO SCH (07:16)
[2021-08-10] MEDS: CYANOCOBALAMIN (B-12) 500 MCG TABLET PO SCH (07:16)
[2021-08-10] MEDS: prednisoLONE sod phosphate 15 MG/5 ML PO SCH (07:16)
[2021-08-10] MEDS: THIAMINE HCL 100 MG TAB PO SCH (07:16)
[2021-08-10] MEDS: PANTOprazole 40 MG TAB PO SCH (07:17)
[2021-08-10] MEDS: FOLIC ACID 1 MG TAB PO SCH (07:17)
[2021-08-10] MEDS: levETIRAcetam 500 MG TAB PO SCH ×2 (07:17→20:56)
--- NOTE | 2021-08-10 08:07 | Gastroenterology Progress Note ---
Date of Service August 10, 2021 Assessment & Plan (1) Abnormal LFTs: Plan: Elevated LFTs: Patient presented with total bilirubin 15.3, AST 261, ALT 102, alk phos 399 08/05/2021. This morning her labs are total bilirubin 21.2, AST 184, ALT 79, alk phos 330. PT/INR stable. She has been on prednisone 40 mg p.o. daily beginning 08/08/2021. She does have history of regular daily alcohol use. CT and ultrasound of the abdomen have been obtained while inpatient and demonstrated no intra or extrahepatic biliary ductal dilatation or obstructive process. She has had laboratory testing to include hepatitis AB and C serology which were all negative. Pending results for ammonia, CMV, EBV, SHERRY, AMA, smooth muscle antibody, LMKA. Pharmacy confirms no contributing medication causes for elevation of LFTs. Alcohol abuse: Reports her daily alcohol intake and states that she drinks approximately 3 alcoholic beverages each evening. Never had withdrawal per her report. Pancreatitis: Questionable mild pancreatic head edema and perinephric pancreatic fluid may be reactive, superimposed pancreatitis cannot be entirely excluded. Likely alcohol induced. Denies pain this morning Case reviewed with Dr. Millard. Please refer to supervising physician addendum for further recommendations. I have spent 15 minutes of discrete time performing the activities of this visit which include but are not limited to review of the medical record, obtaining a history, physical exam, and entering information in the electronic record. (2) Alcohol abuse: (3) Pancreatitis: Admission and Anticipated Discharge Date Admission Date: August 05, 2021 Supervising Physician Co-Signing Physician Notes I have seen and examined the patient. I agree with note above by MARKELL Caro except as noted below. HPI with patient for H and P. He states she has been drinking ETOH only the last few months. Pt alert and answering questions. Denies abd pain. PE Abdomen pos bs, protuberant but not tense, no gaurding nor rebound A/P hepatitis---most likely from ETOH but other serologies pending. INR stable so no evidence of liver decompensation, AST and ALT stable. TB still rising but hopefully will peak and come down. Continue Prednisolone and avoid hepatotoxic drugs. ascites--from liver disease, malnutrition malnutrition--recommend eating solid food. As the supervising physician, I , Manolo Millard MD have spent 18 minutes of discrete time performing the activities of this visit which include but not limited to review of the medical records, obtaining a history, physical exam and entering information in the electronic record. MARKELL Caro has reported spending 15 minutes of discrete time with the activities of this visit. Subjective Patient lying in bed sleeping and position of comfort when entered the room. She awakens easily with verbal stimuli. Slow to answer questions but is responding appropriately. States she feels okay overall this morning. She is complaining of some upper abdominal pain. Reports some nausea but no vomiting. States she does not really have an appetite. Her breakfast tray is set up in front of her but she has no interest in eating. Review of Systems Review of Systems: All systems reviewed & are unremarkable except as noted in Subjective Physical Exam Gastrointestinal (Abdomen): Inspection/Auscultation: abdomen normal to inspection and normal bowel sounds Percussion/Palpation: abdomen soft; abdomen nontender, no guarding and abdomen not rigid Results & Data ([facility]) Vital Signs (Past 12 Hours) Vital Signs Temp Pulse Pulse Resp BP BP Pulse Ox 08/10/21 07:59 36.6 C 87 16 116/79 95 08/10/21 07:08 91 H 08/10/21 03:02 37.0 C 88 20 122/85 97 08/10/21 00:00 83 08/09/21 22:46 36.8 C 84 18 107/71 94 Laboratory Results Laboratory Results - last 24 hr 08/06/21 08/09/21 08/09/21 06:49 11:27 11:27 WBC RBC Hgb Hct MCV MCH MCHC RDW Std Deviation RDW Coeff of Wilbur Plt Count MPV Immature Gran % (Auto) Neut % (Auto) Lymph % (Auto) Anson % (Auto) Eos % (Auto) Baso % (Auto) Neut # (Auto) Lymph # (Auto) Anson # (Auto) Eos # (Auto) Baso # (Auto) Immature Gran # (Auto) Absolute Nucleated RBC Nucleated RBC % (auto) Polychromasia PT INR Sodium Potassium Chloride Carbon Dioxide Anion Gap BUN Creatinine Est Cr Clr Drug Dosing Est GFR ( Amer) Est GFR (Non-Af Amer) BUN/Creatinine Ratio Glucose Calcium Total Bilirubin AST ALT Alkaline Phosphatase Ammonia Cancelled Total Protein Albumin Globulin Albumin/Globulin Ratio Levetiracetam 6.2 SHERRY Screen Anti-Mitochondrial Ab Actin IgG Antibody Liver/Kid Microsomes Ab CMV IgM Ab EBV Capsid Ag IgG Ab Pending EBV Capsid Ag IgM Ab Pending EBV Nuclear Antigen Ab Pending EBV Antibody Interp Pending Miscellaneous Test 08/09/21 08/09/21 08/10/21 11:27 12:52 08:42 WBC RBC Hgb Hct MCV MCH MCHC RDW Std Deviation RDW Coeff of Wilbur Plt Count MPV Immature Gran % (Auto) Neut % (Auto) Lymph % (Auto) Anson % (Auto) Eos % (Auto) Baso % (Auto) Neut # (Auto) Lymph # (Auto) Anson # (Auto) Eos # (Auto) Baso # (Auto) Immature Gran # (Auto) Absolute Nucleated RBC Nucleated RBC % (auto) Polychromasia PT 13.3 H INR 1.3 H Sodium Potassium Chloride Carbon Dioxide Anion Gap BUN Creatinine Est Cr Clr Drug Dosing Est GFR ( Amer) Est GFR (Non-Af Amer) BUN/Creatinine Ratio Glucose Calcium Total Bilirubin AST ALT Alkaline Phosphatase Ammonia Total Protein Albumin Globulin Albumin/Globulin Ratio Levetiracetam SHERRY Screen Pending Anti-Mitochondrial Ab Pending Actin IgG Antibody Pending Liver/Kid Microsomes Ab Pending CMV IgM Ab Pending EBV Capsid Ag IgG Ab EBV Capsid Ag IgM Ab EBV Nuclear Antigen Ab EBV Antibody Interp Miscellaneous Test REPORT 08/10/21 08/10/21 08:42 08:42 WBC 11.34 H RBC 2.66 L Hgb 10.2 L Hct 30.7 L MCV 115.4 H MCH 38.3 H MCHC 33.2 RDW Std Deviation 79.3 H RDW Coeff of Wilbur 19.1 H Plt Count 175 MPV 10.7 H Immature Gran % (Auto) 1.9 Neut % (Auto) 80.3 Lymph % (Auto) 7.0 Anson % (Auto) 10.0 Eos % (Auto) 0.3 Baso % (Auto) 0.5 Neut # (Auto) 9.12 H Lymph # (Auto) 0.79 L Anson # (Auto) 1.13 H Eos # (Auto) 0.03 Baso # (Auto) 0.06 Immature Gran # (Auto) 0.21 H Absolute Nucleated RBC 0.14 H Nucleated RBC % (auto) 1.2 Polychromasia 1+ PT INR Sodium 132 L Potassium 4.3 Chloride 100 Carbon Dioxide 23 Anion Gap 9 BUN 15 Creatinine 0.72 Est Cr Clr Drug Dosing 59.2 Est GFR ( Amer) 107.0 Est GFR (Non-Af Amer) 92.3 BUN/Creatinine Ratio 20.8 H Glucose 75 Calcium 7.9 L Total Bilirubin 21.2 H AST 184 H ALT 79 H Alkaline Phosphatase 330 H Ammonia Total Protein 4.2 L Albumin 2.5 L Globulin 1.7 L Albumin/Globulin Ratio 1.5 Levetiracetam SHERRY Screen Anti-Mitochondrial Ab Actin IgG Antibody Liver/Kid Microsomes Ab CMV IgM Ab EBV Capsid Ag IgG Ab EBV Capsid Ag IgM Ab EBV Nuclear Antigen Ab EBV Antibody Interp Miscellaneous Test
[2021-08-10 08:58] LABS: Basophils # (auto) 0.06 K/uL (0-0.2); Basophils % (auto) 0.5 %; Eosinophils # (auto) 0.03 K/uL (0-0.5); Eosinophils % (auto) 0.3 %; Hematocrit (blood only) 30.7 % (37-47); Hemoglobin 10.2 g/dL (12.0-16.0); Immature Granulocytes # (auto) 0.21 K/uL (0.00-0.02); Immature Granulocytes % (auto) 1.9 %; Lymphocytes # (auto) 0.79 K/uL (1.2-3.4); Mean Corpuscular Hemoglobin 38.3 pg (25-34); Mean Corpuscular Hgb Conc 33.2 g/dL (32-36); Mean Corpuscular Volume 115.4 fL (80-100); Mean Platelet Volume 10.7 fL (7.4-10.4); Monocytes # (auto) 1.13 K/uL (0.11-0.59); Neutrophils # (auto) 9.12 K/uL (1.4-6.5); Neutrophils % (auto) 80.3 %; Nucleated RBC # (auto) 0.14 K/uL (0-0); Nucleated RBC % (auto) 1.2 %; Platelet Count 175 K/uL (130-400); RDW Coefficient of Variation 19.1 % (11.5-14.5); RDW Standard Deviation 79.3 fL (36.4-46.3); Red Blood Count 2.66 M/uL (4.2-5.4); White Blood Count 11.34 K/uL (4.8-10.8)
--- NOTE | 2021-08-10 09:02 | Hospitalist Progress Note ---
Date of Service August 10, 2021 Assessment & Plan (1) Alcoholic liver disease: Plan: Severe Alcohol Induced Hepatitis, Wernicke's encephalopathy patient has been ill for weeks - Prior history of several beers/screwdrivers per day. In discussing w/ pts pt more depressed in last 3 months and drinking much more daily. Drinks less w/ beer due to filling up, handle of vodka lasts a few days Last drink 08/05/2021. Denies withdrawal symptoms previously. Does have a seizure disorder with no seizure in the last year Ammonia normal on admission - thiamine 100 mg p.o. daily, folic acid 1 mg p.o. every morning, Received banana bag on admission Admit Bilirubin 15.2, AST 229, ALT 89. Alkaline phosphatase 368. - RUQ US: Pancreas: The imaged portion of the pancreas is within normal limits with no focal mass or peripancreatic fluid collection identified. Liver: Liver is enlarged measuring 18.5 cm with diffuse increased echogenicity characteristic of fatty infiltration and hepatocellular disease. There is no evidence for a focal mass. There is no intrahepatic biliary duct dilatation. There is evidence for small amount of fluid surrounding the liver representing ascites. Gallbladder: The gallbladder is well distended with no evidence of cholelithiasis, wall thickening or pericholecystic edema. There was reportedly a negative sonographic Martinez sign. - CT-A/P: Findings are compatible with hepatic steatosis and hepatomegaly with mild ascites. No evidence of acute abnormality is seen. No evidence of calcified gallstones, normal caliber gallbladder wall, no intra or extrahepatic biliary ductal dilation. Pronounced liver hepatic steatosis with hepatomegaly to 18 mm. Admit Child Arce: Class C, 10-11 points Admit Meld score 24, 19.6% 3-month mortality [facility] discriminant function 31.8. + Benefit of glucocorticoid therapy, +prednisolone 40mg daily started 08/06/21. Stop if no improvement at 7 days, Lille Score admit values: Age 56, albumin 2.6, bilirubin 15.2, creatinine 0.62, PT 12.6 - Pantoprazole 40mg GI PPx daily Bilirubin continues to be very elevated, transaminases slightly improved - GI consulted. repeat ammonia and + CMB, EBV, SHERRY, AMA, SM-Ab, LMKA added and pending. Appreciate recommendations. - LDL 282, very elevated. Statin/ezetimbe deferred in the setting of acute hepatitis with CP Class C. PCSK9 possible option once stabilizing (2) Seizure: Plan: Continue Keppra 500 mg p.o. twice daily (3) Pancreatitis: Plan: Possible alcohol induced pancreatitis Patient with sudden onset abdominal discomfort a.m. of 08/08, endorses had prior episodes which resolved with Pepto-Bismol. Does have a history of GERD. Remains on PPI - Lipase unable to be run in the setting of hyperbilirubinemia (4) Alcohol abuse: Plan: Placed on AWSS protocol with IV Ativan as above (5) Depression: Plan: Continue escitalopram As noted above, patient has had bupropion discontinued recently patient feels extremely depressed lost the will to want to eat (6) Elevated troponin I level: Plan: - Troponin 33.2 upon admission, down trended on recheck -No territorial ST segment changes on EKG MS demand ischemia TTE: LVSF normal. Grade II diastolic dysfunction. LV wall motion normal. RA mild dilation. Mild IVC dilation. Echo: (7) Hyponatremia: Plan: Hyponatremia in the setting of poor intake Beer potomania Sodium 123 on admission, slowly up trended and currently 132 IV fluid stopped for mild effusion. PO intake improving added boost supplementation (8) Anemia: Plan: Hyperchromic, macrocytic anemia Likely secondary to alcohol abuse poor nutritional intake Follow serially (9) Fatty liver: Plan: Abnormal LFTs will be followed, As noted on ultrasound (10) Hypokalemia: Plan: - Repleted as noted, normalized (11) Abnormal LFTs: (12) UTI (urinary tract infection): Plan: - Follow urine culture shows multiple organisms requesting recollection patient is without current symptoms of urinary tract infection - Received empiric Rocephin Admission and Anticipated Discharge Date Admission Date: August 05, 2021 Subjective She awakens easily with verbal stimuli. Slow to answer questions but is attempting to respond. States she feels okay overall . She is complaining of some upper abdominal pain. . States she does not really want to eat any food she says is not from a particular thing she does has no desire to eat Review of Systems Review of Systems: Mild to moderate distress and significant fatigue no headache, no visual changes no speech or swallowing issues no chest pain, pressure or palpitations no shortness of breath, cough or wheezes Diffuse but mostly epigastric abdominal pain mild nausea without vomiting decreased appetite no dysuria, hematuria or frequency no focal joint pain or swelling no back pain, CVA tenderness or radicular pain no bruising, bleeding or rashes no focal signs of weakness or numbness or altered sensation Patient seems confused and bewildered Physical Exam Physical Exam: The patient appeared much older than stated age Debilitated and confused Vital signs as documented. Lungs are clear to auscultation and appear unlabored Cardiac exam, Rhythm is regular.. No murmurs, rubs or gallops. Abdominal exam reveals normal bowel sounds, soft epigastric tenderness mild dullness consistent with fluid Extremities are trace edematous and both pedal pulses are normal. Neurologic exam is alert and oriented, x2, no focal loss of strength or sensation no asterixis is seen Skin is without bruises or rashes Results & Data Results & Data ([facility]) Vital Signs (Past 12 Hours) Vital Signs Temp Pulse Pulse Resp BP BP Pulse Ox 08/10/21 07:59 97.9 F 87 16 116/79 95 08/10/21 07:08 91 H 08/10/21 03:02 98.6 F 88 20 122/85 97 08/10/21 00:00 83 08/09/21 22:46 98.2 F 84 18 107/71 94 PG Care Time/CCT Total # of Minutes Spent Total Time Spent with Patient: Total time spent is greater than 50% in coordination of care (as documented) at patient's floor/unit and/or counseling patient: Coding Level of Care Code 26712 Subseq Hosp Care Lvl 3 Diagnoses Alcoholic liver disease K70.9 Seizure R56.9 Pancreatitis K85.90 Alcohol abuse F10.10 Depression F32.9 Elevated troponin I level R77.8 Hyponatremia E87.1 Anemia D64.9 Anemia type: unspecified type Fatty liver K76.0 Hypokalemia E87.6 Abnormal LFTs R79.89 UTI (urinary tract infection) N30.00 Hematuria presence: without hematuria Urinary tract infection type: acute cystitis (1) UTI (urinary tract infection) Hematuria presence: without hematuria Urinary tract infection type: acute cystitis Qualified Code(s): N30.00 - Acute cystitis without hematuria (2) Anemia Anemia type: unspecified type Qualified Code(s): D64.9 - Anemia, unspecified
[2021-08-10 09:14] LABS: INR 1.3 (0.9-1.1); Prothrombin Time 13.3 Seconds (9.0-12.0)
[2021-08-10 09:23] LABS: Albumin Globulin Ratio 1.5 (0.9-2); Albumin Level 2.5 gm/dl (3.4-5.0); BUN Creatinine Ratio 20.8 (10-20); Bilirubin,Total 21.2 mg/dl (0.2-1.0); Calcium 7.9 mg/dl (8.5-10.1); Creatinine Clr Calc Pharmacy 59.2 ml/min; Est GFR (Non-African American) 92.3 ml/min; Globulin 1.7 gm/dl (2.5-4.0); Polychromasia 1+; Potassium 4.3 mmol/L (3.5-5.1); Total Protein 4.2 gm/dl (6.0-8.3)
[2021-08-10 11:41] LABS: EBV Nuclear Ag Antibody >600.00 U/mL; EBV Virus Capsid Ag IgG Ab >750.00 U/mL
[2021-08-10] MEDS: ONDANSETRON INJ 2 MG/ML 2 ML VIAL IV PRN (20:56)
[2021-08-11] MEDS ORDERED: METOCLOPRAMIDE HCL INJ 5 MG/ML 2 ML VIAL IV STA (00:47)
[2021-08-11] MEDS: MoRPHine SULFATE 4 MG/ML 1 ML CARP\\VIAL IV PRN (01:21)
[2021-08-11] MEDS: LEVOTHYROXINE SODIUM 75 MCG TABLET PO SCH (05:27)
[2021-08-11] MEDS: PANTOprazole 40 MG TAB PO SCH (07:23)
[2021-08-11] MEDS: levETIRAcetam 500 MG TAB PO SCH ×2 (07:23→20:01)
[2021-08-11] MEDS: THIAMINE HCL 100 MG TAB PO SCH (07:23)
[2021-08-11] MEDS: POTASSIUM CHLORIDE CRTAB 20 MEQ TABCR PO SCH (07:23)
[2021-08-11] MEDS: FOLIC ACID 1 MG TAB PO SCH (07:23)
[2021-08-11] MEDS: prednisoLONE sod phosphate 15 MG/5 ML PO SCH (07:24)
[2021-08-11] MEDS: CYANOCOBALAMIN (B-12) 500 MCG TABLET PO SCH (07:24)
[2021-08-11 08:45] LABS: Basophils # (auto) 0.04 K/uL (0-0.2); Basophils % (auto) 0.3 %; Eosinophils # (auto) 0.03 K/uL (0-0.5); Eosinophils % (auto) 0.2 %; Hematocrit (blood only) 32.4 % (37-47); Hemoglobin 10.6 g/dL (12.0-16.0); Immature Granulocytes # (auto) 0.23 K/uL (0.00-0.02); Immature Granulocytes % (auto) 1.7 %; Lymphocytes # (auto) 0.89 K/uL (1.2-3.4); Lymphocytes % (auto) 6.6 %; Mean Corpuscular Hemoglobin 37.3 pg (25-34); Mean Corpuscular Hgb Conc 32.7 g/dL (32-36); Mean Corpuscular Volume 114.1 fL (80-100); Mean Platelet Volume 10.7 fL (7.4-10.4); Monocytes % (auto) 12.6 %; Neutrophils % (auto) 78.6 %; Nucleated RBC # (auto) 0.07 K/uL (0-0); Nucleated RBC % (auto) 0.5 %; Platelet Count 187 K/uL (130-400); RDW Coefficient of Variation 18.7 % (11.5-14.5); RDW Standard Deviation 76.8 fL (36.4-46.3); Red Blood Count 2.84 M/uL (4.2-5.4); White Blood Count 13.49 K/uL (4.8-10.8)
[2021-08-11 08:50] LABS: INR 1.2 (0.9-1.1); Prothrombin Time 12.8 Seconds (9.0-12.0)
[2021-08-11 09:11] LABS: Macrocytosis Present; Polychromasia 1+
[2021-08-11 09:27] LABS: Alanine Aminotransferase 83 U/L (7-52); Albumin Globulin Ratio 1.4 (0.9-2); Albumin Level 2.6 gm/dl (3.4-5.0); Alkaline Phosphatase 372 U/L (34-104); Anion Gap 7 (3-11); Aspartate Aminotransferase 181 U/L (13-39); Bilirubin,Total 23.7 mg/dl (0.2-1.0); Blood Urea Nitrogen 14 mg/dl (6-23); Calcium 7.8 mg/dl (8.5-10.1); Carbon Dioxide 24 mmol/L (21-32); Chloride 98 mmol/L (98-107); Creatinine Clr Calc Pharmacy 73.4 ml/min; Est GFR (African American) 115.2 ml/min; Est GFR (Non-African American) 99.4 ml/min; Globulin 1.8 gm/dl (2.5-4.0); Glucose 79 mg/dl (70-99(Fasting)); Potassium 3.9 mmol/L (3.5-5.1); Sodium 129 mmol/L (136-145); Total Protein 4.4 gm/dl (6.0-8.3)
--- NOTE | 2021-08-11 16:08 | Gastroenterology Progress Note ---
Date of Service August 11, 2021 Assessment & Plan (1) Alcoholic liver disease: Plan: ETOH hepatitis----Pt clinically has better mental status suggesting ETOH hepatitis may be turning the corner. Would like to see TB peak and start coming down to make sure. Continue monitoring LFTS and INR.. Serologies for other liver diseases neg so far. elevated ammonia--TB too high to get ammonia in real time here. Since she is clinically alert will hold off on treatment but is becomes somnolent would start lactulose I, Manolo Millard MD have spent 10 minutes of discrete time performing the activities of this visit which include but are not limited to review of the [facility] record, obtaining a history, physical exam, and entering information in the electronic record. Admission and Anticipated Discharge Date Admission Date: August 05, 2021 Subjective CC f/u hepatitis HPI Pt awake and alert. She states she is eating some food. No abd pain. TB still rising other LFts about the same. INR stable. Ammonia on 08/09 142 markedly elevated but mental status today is good. Physical Exam Gastrointestinal (Abdomen): pos bs, soft, mildly protuberant Neurologic: no asterixis Results & Data ([facility]) Vital Signs (Past 12 Hours) Vital Signs Temp Pulse Pulse Resp BP Pulse Ox 08/11/21 15:29 77 08/11/21 12:03 36.7 C 101 H 20 110/71 96 08/11/21 07:59 36.7 C 84 18 116/78 94 08/11/21 07:19 86
--- NOTE | 2021-08-11 17:23 | Hospitalist Progress Note ---
Date of Service August 11, 2021 Assessment & Plan (1) Alcoholic liver disease: Plan: Severe Alcohol Induced Hepatitis, Wernicke's encephalopathy patient has been ill for weeks - Prior history of several beers/screwdrivers per day. In discussing w/ pts pt more depressed in last 3 months and drinking much more daily. Drinks less w/ beer due to filling up, handle of vodka lasts a few days Last drink 08/05/2021. Denies withdrawal symptoms previously. Does have a seizure disorder with no seizure in the last year Ammonia normal on admission - thiamine 100 mg p.o. daily, folic acid 1 mg p.o. every morning, Received banana bag on admission Admit Bilirubin 15.2, AST 229, ALT 89. Alkaline phosphatase 368. - RUQ US: Pancreas: The imaged portion of the pancreas is within normal limits with no focal mass or peripancreatic fluid collection identified. Liver: Liver is enlarged measuring 18.5 cm with diffuse increased echogenicity characteristic of fatty infiltration and hepatocellular disease. There is no evidence for a focal mass. There is no intrahepatic biliary duct dilatation. There is evidence for small amount of fluid surrounding the liver representing ascites. Gallbladder: The gallbladder is well distended with no evidence of cholelithiasis, wall thickening or pericholecystic edema. There was reportedly a negative sonographic Martinez sign. - CT-A/P: Findings are compatible with hepatic steatosis and hepatomegaly with mild ascites. No evidence of acute abnormality is seen. No evidence of calcified gallstones, normal caliber gallbladder wall, no intra or extrahepatic biliary ductal dilation. Pronounced liver hepatic steatosis with hepatomegaly to 18 mm. Admit Child Arce: Class C, 10-11 points, remains with increased 1-3 year mortality Admit Meld score 24, 19.6% 3-month mortality [facility] discriminant function 31.8. + Benefit of glucocorticoid therapy, +prednisolone 40mg daily started 08/06/21. Stop if no improvement at 7 days, Lille Score admit values: Age 56, albumin 2.6, bilirubin 15.2, creatinine 0.62, PT 12.6 - Pantoprazole 40mg GI PPx daily Bilirubin continues to be very elevated, transaminases slightly improved - GI consulted. Statin/ezetimbe deferred in the setting of acute hepatitis with CP Class C. PCSK9 possible option once stabilizing (2) Seizure: Plan: Continue Keppra 500 mg p.o. twice daily (3) Pancreatitis: Plan: Possible alcohol induced pancreatitis Patient with sudden onset abdominal discomfort a.m. of 08/08, endorses had prior episodes which resolved with Pepto-Bismol. Does have a history of GERD. Remains on PPI - Lipase unable to be run in the setting of hyperbilirubinemia (4) Alcohol abuse: Plan: Placed on AWSS protocol with IV Ativan as above (5) Depression: Plan: Continue escitalopram As noted above, patient has had bupropion discontinued recently patient feels extremely depressed lost the will to want to eat, bupropion is ok to use in liver failure in reduced doses will start at 75 mg (6) Elevated troponin I level: Plan: - Troponin 33.2 upon admission, down trended on recheck -No territorial ST segment changes on EKG MS demand ischemia TTE: LVSF normal. Grade II diastolic dysfunction. LV wall motion normal. RA mild dilation. Mild IVC dilation. Echo: (7) Hyponatremia: Plan: Hyponatremia in the setting of poor intake Beer potomania Sodium 123 on admission, slowly up trended IV fluid stopped for mild effusion. PO intake improving added boost supplementation (8) Anemia: Plan: Hyperchromic, macrocytic anemia Likely secondary to alcohol abuse poor nutritional intake Follow serially (9) Fatty liver: Plan: Abnormal LFTs will be followed, As noted on ultrasound (10) Hypokalemia: Plan: - Repleted as noted, normalized (11) Abnormal LFTs: (12) UTI (urinary tract infection): Plan: - Follow urine culture shows multiple organisms requesting recollection patient is without current symptoms of urinary tract infection - Received empiric Rocephin Admission and Anticipated Discharge Date Admission Date: August 05, 2021 Subjective pt is shakey and jaundiced not issue with withdrawal, wants to go home but convinced to stay, requests antidepressant but will not speak to psychiatry, also wants sleep aide, will start with antidepressant Review of Systems Review of Systems: Mild to moderate distress and significant fatigue no headache, no visual changes no speech or swallowing issues no chest pain, pressure or palpitations no shortness of breath, cough or wheezes Diffuse but mostly epigastric abdominal pain mild nausea without vomiting decreased appetite no dysuria, hematuria or frequency no focal joint pain or swelling no back pain, CVA tenderness or radicular pain no bruising, bleeding or rashes, is jaundiced no focal signs of weakness or numbness or altered sensation Patient seems confused and bewildered Physical Exam Physical Exam: The patient appeared much older than stated age Debilitated and weak easy to see jaundice Vital signs as documented. Lungs are clear to auscultation and appear unlabored Cardiac exam, Rhythm is regular.. No murmurs, rubs or gallops. Abdominal exam reveals normal bowel sounds, soft epigastric tenderness mild dullness consistent with fluid Extremities are trace edematous and both pedal pulses are normal. Neurologic exam is alert and oriented, x3, no focal loss of strength or sensation no asterixis is seen Skin is without bruises or rashes. is yellow Results & Data Results & Data ([facility]) Vital Signs (Past 12 Hours) Vital Signs Temp Pulse Pulse Resp BP Pulse Ox 08/11/21 16:19 98.6 F 85 18 128/90 97 08/11/21 15:29 77 08/11/21 12:03 98.1 F 101 H 20 110/71 96 08/11/21 07:59 98.1 F 84 18 116/78 94 08/11/21 07:19 86 PG Care Time/CCT Total # of Minutes Spent Total Time Spent with Patient: Total time spent is greater than 50% in coordination of care (as documented) at patient's floor/unit and/or counseling patient: Coding Level of Care Code 35767 Subseq Hosp Care Lvl 2 Diagnoses Alcoholic liver disease K70.9 Seizure R56.9 Pancreatitis K85.90 Alcohol abuse F10.10 Depression F32.9 Elevated troponin I level R77.8 Hyponatremia E87.1 Anemia D64.9 Anemia type: unspecified type Fatty liver K76.0 Hypokalemia E87.6 Abnormal LFTs R79.89 UTI (urinary tract infection) N30.00 Hematuria presence: without hematuria Urinary tract infection type: acute cystitis (1) Anemia Anemia type: unspecified type Qualified Code(s): D64.9 - Anemia, unspecified (2) UTI (urinary tract infection) Hematuria presence: without hematuria Urinary tract infection type: acute cystitis Qualified Code(s): N30.00 - Acute cystitis without hematuria
[2021-08-11] MEDS: oxyCODONE HCL IR 5 MG TAB (IMMEDIATE RELEASE) PO PRN (20:00)
[2021-08-11] MEDS: buPROPion HCl 75 MG TABLET PO SCH (20:03)
[2021-08-12] MEDS: CHOLESTYRAMINE LIGHT 4 GM PKT PO SCH ×3 (00:13→23:48)
[2021-08-12] MEDS: oxyCODONE HCL IR 5 MG TAB (IMMEDIATE RELEASE) PO PRN ×2 (02:30→19:42)
[2021-08-12] MEDS: LEVOTHYROXINE SODIUM 75 MCG TABLET PO SCH (06:27)
[2021-08-12] MEDS: buPROPion HCl 75 MG TABLET PO SCH (08:14)
[2021-08-12] MEDS: PANTOprazole 40 MG TAB PO SCH (08:14)
[2021-08-12] MEDS: POTASSIUM CHLORIDE CRTAB 20 MEQ TABCR PO SCH (08:14)
[2021-08-12] MEDS: levETIRAcetam 500 MG TAB PO SCH ×2 (08:14→19:42)
[2021-08-12] MEDS: FOLIC ACID 1 MG TAB PO SCH (08:14)
[2021-08-12] MEDS: THIAMINE HCL 100 MG TAB PO SCH (08:14)
[2021-08-12] MEDS: CYANOCOBALAMIN (B-12) 500 MCG TABLET PO SCH (08:15)
[2021-08-12] MEDS: prednisoLONE sod phosphate 15 MG/5 ML PO SCH (08:15)
[2021-08-12 09:09] LABS: Mean Corpuscular Hgb Conc 33.3 g/dL (32-36); Mean Corpuscular Volume 114.1 fL (80-100); Platelet Count 155 K/uL (130-400); RDW Standard Deviation 74.7 fL (36.4-46.3); Red Blood Count 2.63 M/uL (4.2-5.4); White Blood Count 13.85 K/uL (4.8-10.8)
[2021-08-12 09:27] LABS: Potassium 4.1 mmol/L (3.5-5.1)
[2021-08-12 09:28] LABS: Albumin Globulin Ratio 1.4 (0.9-2); Albumin Level 2.3 gm/dl (3.4-5.0); BUN Creatinine Ratio 23.3 (10-20); Bilirubin,Total 20.7 mg/dl (0.2-1.0); Calcium 7.9 mg/dl (8.5-10.1); Creatinine Clr Calc Pharmacy 77.1 ml/min; Est GFR (African American) 116.4 ml/min; Est GFR (Non-African American) 100.5 ml/min; Globulin 1.7 gm/dl (2.5-4.0)
[2021-08-12 09:45] LABS: Basophils # (auto) 0.03 K/uL (0-0.2); Basophils % (auto) 0.2 %; Eosinophils # (auto) 0.02 K/uL (0-0.5); Eosinophils % (auto) 0.1 %; Immature Granulocytes # (auto) 0.19 K/uL (0.00-0.02); Immature Granulocytes % (auto) 1.4 %; Lymphocytes # (auto) 1.15 K/uL (1.2-3.4); Lymphocytes % (auto) 8.3 %; Macrocytosis Present; Monocytes # (auto) 1.16 K/uL (0.11-0.59); Monocytes % (auto) 8.4 %; Neutrophils % (auto) 81.6 %
[2021-08-12 10:02] LABS: INR 1.2 (0.9-1.1); Prothrombin Time 12.2 Seconds (9.0-12.0)
--- NOTE | 2021-08-12 13:12 | Gastroenterology Progress Note ---
Date of Service August 12, 2021 Assessment & Plan (1) Alcoholic liver disease: Plan: ETOH hepatitis---serologies for other etiology negative so far. TB peaked and coming down. If TB stable or improved tomorrow then could be DCed from GI standpoint with plan for ETOH abstinence. elevated ammonia--clinicall mental status ok so no lactulose for now. Admission and Anticipated Discharge Date Admission Date: August 05, 2021 Subjective cc f/u ETOH hepatitis HPI Pt without abd pain. Pt awake and alert. TB 20.7 vs 23.7 yesterday and other LFTS improved. INR stable. Physical Exam Constitutional: WD/WN, vitals as above Gastrointestinal (Abdomen): pos bs, soft, no guarding nor rebound Results & Data ([facility]) Vital Signs (Past 12 Hours) Vital Signs Temp Pulse Pulse Resp BP BP Pulse Ox 08/12/21 12:14 37.3 C 67 18 115/75 95 08/12/21 11:22 93 H 08/12/21 07:49 37.4 C 85 20 105/69 94 08/12/21 03:39 72 08/12/21 03:02 37.0 C 81 18 101/68 96
--- NOTE | 2021-08-12 18:03 | Hospitalist Progress Note ---
Date of Service August 12, 2021 Assessment & Plan (1) Alcoholic liver disease: Plan: Severe Alcohol Induced Hepatitis, Wernicke's encephalopathy Last drink 08/05/2021. . Does have a seizure disorder with no seizure in the last year Ammonia normal on admission - thiamine 100 mg p.o. daily, folic acid 1 mg p.o. every morning, Received banana bag on admission Admit Bilirubin 15.2, AST 229, ALT 89. Alkaline phosphatase 368. - RUQ US: Liver is enlarged with fatty infiltration and hepatocellular disease. There is no evidence for a focal mass. - CT-A/P: Findings are compatible with hepatic steatosis and hepatomegaly with mild ascites. Admit Child Arce: Class C, 10-11 points, remains with increased 1-3 year mortality Admit Meld score 24, 19.6% 3-month mortality [facility] discriminant function 31.8. + Benefit of glucocorticoid therapy, +prednisolone 40mg daily started 08/06/21 recommend 30 d as is improving - Pantoprazole 40mg GI PPx daily cholestyramine started 08/11 (2) Seizure: Plan: Continue Keppra 500 mg p.o. twice daily (3) Pancreatitis: Plan: Possible alcohol induced pancreatitis no pancreatic inflammation commented on imaging - Lipase unable to be run in the setting of hyperbilirubinemia (4) Alcohol abuse: Plan: out of time frame for acute withdrawal (5) Depression: Plan: Continue escitalopram As noted above, patient has had bupropion discontinued recently patient feels extremely depressed lost the will to want to eat, bupropion is ok to use in liver failure in reduced doses will start at 75 mg (6) Elevated troponin I level: Plan: - Troponin 33.2 demand ischemia TTE: LVSF normal. Grade II diastolic dysfunction. LV wall motion normal. RA mild dilation. Mild IVC dilation. Echo: (7) Hyponatremia: Plan: Hyponatremia in the setting of poor intake Beer potomania Sodium 123 on admission, slowly up trended (8) Anemia: Plan: Hyperchromic, macrocytic anemia Likely secondary to alcohol abuse poor nutritional intake Follow serially (9) Fatty liver: Plan: Abnormal LFTs will be followed, As noted on ultrasound (10) Hypokalemia: Plan: - Repleted as noted, normalized (11) Abnormal LFTs: (12) UTI (urinary tract infection): Plan: - Follow urine culture shows multiple organisms requesting recollection patient is without current symptoms of urinary tract infection - Received empiric Rocephin Admission and Anticipated Discharge Date Admission Date: August 05, 2021 Subjective pt is markedly disabled with weakness and depression, unknown how much maybe wernekies encephalopathy Review of Systems Review of Systems: Mild to moderate distress and significant fatigue no headache, no visual changes no speech or swallowing issues no chest pain, pressure or palpitations no shortness of breath, cough or wheezes Diffuse but mostly epigastric abdominal pain mild nausea without vomiting decreased appetite no dysuria, hematuria or frequency no focal joint pain or swelling no back pain, CVA tenderness or radicular pain no bruising, bleeding or rashes, is jaundiced no focal signs of weakness or numbness or altered sensation Patient seems confused and bewildered Physical Exam Physical Exam: The patient appeared much older than stated age Debilitated and weak easy to see jaundice Vital signs as documented. Lungs are clear to auscultation and appear unlabored Cardiac exam, Rhythm is regular.. No murmurs, rubs or gallops. Abdominal exam reveals normal bowel sounds, soft epigastric tenderness mild dullness consistent with fluid Extremities are trace edematous and both pedal pulses are normal. Neurologic exam is alert and oriented, x3, no focal loss of strength or sensation no asterixis is seen Skin is without bruises or rashes. is yellow Results & Data Results & Data ([facility]) Vital Signs (Past 12 Hours) Vital Signs Temp Pulse Pulse Resp BP BP Pulse Ox 08/12/21 15:58 98.2 F 88 16 126/83 98 08/12/21 15:01 80 08/12/21 14:35 98.3 F 79 16 114/80 97 08/12/21 12:14 99.1 F 67 18 115/75 95 08/12/21 11:22 93 H 08/12/21 07:49 99.4 F 85 20 105/69 94 PG Care Time/CCT Total # of Minutes Spent Total Time Spent with Patient: Total time spent is greater than 50% in coordination of care (as documented) at patient's floor/unit and/or counseling patient: Coding Level of Care Code 00444 Subseq Hosp Care Lvl 2 Diagnoses Alcoholic liver disease K70.9 Seizure R56.9 Pancreatitis K85.90 Alcohol abuse F10.10 Depression F32.9 Elevated troponin I level R77.8 Hyponatremia E87.1 Anemia D64.9 Anemia type: unspecified type Fatty liver K76.0 Hypokalemia E87.6 Abnormal LFTs R79.89 UTI (urinary tract infection) N30.00 Hematuria presence: without hematuria Urinary tract infection type: acute cystitis (1) UTI (urinary tract infection) Hematuria presence: without hematuria Urinary tract infection type: acute cystitis Qualified Code(s): N30.00 - Acute cystitis without hematuria (2) Anemia Anemia type: unspecified type Qualified Code(s): D64.9 - Anemia, unspecified
[2021-08-12] MEDS: LIDOCAINE 5% 1 PATCH TD SCH (19:41)
[2021-08-13] MEDS: LEVOTHYROXINE SODIUM 75 MCG TABLET PO SCH (05:05)
[2021-08-13] MEDS: oxyCODONE HCL IR 5 MG TAB (IMMEDIATE RELEASE) PO PRN ×2 (05:06→18:30)
[2021-08-13 06:22] LABS: Hematocrit (blood only) 29.8 % (37-47); Hemoglobin 10.1 g/dL (12.0-16.0); Mean Corpuscular Hemoglobin 38.4 pg (25-34); Mean Corpuscular Hgb Conc 33.9 g/dL (32-36); Mean Corpuscular Volume 113.3 fL (80-100); Mean Platelet Volume 11.2 fL (7.4-10.4); Platelet Count 157 K/uL (130-400); RDW Coefficient of Variation 17.3 % (11.5-14.5); RDW Standard Deviation 70.5 fL (36.4-46.3); Red Blood Count 2.63 M/uL (4.2-5.4); White Blood Count 14.13 K/uL (4.8-10.8)
[2021-08-13 06:29] LABS: INR 1.2 (0.9-1.1); Prothrombin Time 12.4 Seconds (9.0-12.0)
[2021-08-13 06:43] LABS: Albumin Globulin Ratio 1.4 (0.9-2); Albumin Level 2.5 gm/dl (3.4-5.0); BUN Creatinine Ratio 15.6 (10-20); Bilirubin,Total 22.4 mg/dl (0.2-1.0); Calcium 7.9 mg/dl (8.5-10.1); Creatinine Clr Calc Pharmacy 72.1 ml/min; Est GFR (Non-African American) 98.4 ml/min; Globulin 1.8 gm/dl (2.5-4.0); Potassium 4.3 mmol/L (3.5-5.1); Total Protein 4.3 gm/dl (6.0-8.3)
[2021-08-13 06:46] LABS: Basophils # (auto) 0.03 K/uL (0-0.2); Basophils % (auto) 0.2 %; Eosinophils # (auto) 0.01 K/uL (0-0.5); Eosinophils % (auto) 0.1 %; Immature Granulocytes # (auto) 0.15 K/uL (0.00-0.02); Immature Granulocytes % (auto) 1.1 %; Lymphocytes % (auto) 6.4 %; Macrocytosis Present; Monocytes # (auto) 0.96 K/uL (0.11-0.59); Monocytes % (auto) 6.8 %; Neutrophils # (auto) 12.08 K/uL (1.4-6.5); Neutrophils % (auto) 85.4 %; Polychromasia 1+; Toxic Vacuolation 1+
[2021-08-13] MEDS: PANTOprazole 40 MG TAB PO SCH (08:51)
[2021-08-13] MEDS: THIAMINE HCL 100 MG TAB PO SCH (08:52)
[2021-08-13] MEDS: buPROPion HCl 75 MG TABLET PO SCH (08:52)
[2021-08-13] MEDS: POTASSIUM CHLORIDE CRTAB 20 MEQ TABCR PO SCH (08:53)
[2021-08-13] MEDS: CYANOCOBALAMIN (B-12) 500 MCG TABLET PO SCH (08:53)
[2021-08-13] MEDS: FOLIC ACID 1 MG TAB PO SCH (08:53)
[2021-08-13] MEDS: prednisoLONE sod phosphate 15 MG/5 ML PO SCH (08:54)
[2021-08-13] MEDS: levETIRAcetam 500 MG TAB PO SCH ×2 (08:54→21:22)
[2021-08-13] MEDS: LIDOCAINE 5% 1 PATCH TD SCH (08:55)
[2021-08-13] MEDS: CHOLESTYRAMINE LIGHT 4 GM PKT PO SCH ×2 (10:00→23:23)
--- NOTE | 2021-08-13 15:40 | Gastroenterology Progress Note ---
Date of Service August 13, 2021 Assessment & Plan (1) Alcoholic liver disease: Plan: ETOH hepatitis---serologies for other etiology negative so far. TB up again today. Would like to see a true trend downward prior to DC. Fortunately INR is stable so liver synthetic function althought somewhat dimisished, is stable. elevated ammonia--clinicall mental status ok so no lactulose for now. I, Manolo Millard MD have spent 12 minutes of discrete time performing the activities of this visit which include but are not limited to review of the medical record, obtaining a history, physical exam, and entering information in the electronic record. Admission and Anticipated Discharge Date Admission Date: August 05, 2021 Subjective CC f/u ETOH hepatitis. HPI Pt awake and alert. No abd pain. Complains of some back pain. Per her report she is eating solid food. Results & Data ([facility]) Vital Signs (Past 12 Hours) Vital Signs Temp Pulse Pulse Resp BP Pulse Ox 08/13/21 11:42 36.9 C 84 18 122/82 98 08/13/21 07:48 83 08/13/21 07:36 36.8 C 85 20 104/72 95
--- NOTE | 2021-08-13 17:11 | Hospitalist Progress Note ---
Date of Service August 13, 2021 Assessment & Plan (1) Alcoholic liver disease: Plan: Severe Alcohol Induced Hepatitis, Wernicke's encephalopathy Last drink 08/05/2021. . Does have a seizure disorder with no seizure in the last year Ammonia normal on admission - thiamine 100 mg p.o. daily, folic acid 1 mg p.o. every morning, Received banana bag on admission Elevated liver enzymes on admission, also Total Michael elevated and rising - RUQ US: Liver is enlarged with fatty infiltration and hepatocellular disease. There is no evidence for a focal mass. - CT-A/P: Findings are compatible with hepatic steatosis and hepatomegaly with mild ascites. Admit Child Arce: Class C, 10-11 points, remains with increased 1-3 year mortality Admit Meld score 24, 19.6% 3-month mortality [facility] discriminant function 31.8. + Benefit of glucocorticoid therapy, +prednisolone 40mg daily started 08/06/21 recommend 30 d as is improving - Pantoprazole 40mg GI PPx daily cholestyramine started 08/11 (2) Seizure: Plan: Continue Keppra 500 mg p.o. twice daily (3) Pancreatitis: Plan: Possible alcohol induced pancreatitis no pancreatic inflammation commented on imaging - Lipase unable to be run in the setting of hyperbilirubinemia (4) Alcohol abuse: Plan: out of time frame for acute withdrawal (5) Depression: Plan: Continue escitalopram As noted above, patient has had bupropion discontinued recently patient feels extremely depressed lost the will to want to eat, bupropion is ok to use in liver failure in reduced doses will start at 75 mg (6) Elevated troponin I level: Plan: - Troponin 33.2 demand ischemia TTE: LVSF normal. Grade II diastolic dysfunction. LV wall motion normal. RA mild dilation. Mild IVC dilation. Echo: (7) Hyponatremia: Plan: Hyponatremia in the setting of poor intake Beer potomania Sodium 123 on admission, slowly up trended (8) Anemia: Plan: Hyperchromic, macrocytic anemia Likely secondary to alcohol abuse poor nutritional intake Follow serially (9) Fatty liver: Plan: Abnormal LFTs will be followed, As noted on ultrasound (10) Hypokalemia: Plan: - Repleted as noted, normalized (11) Abnormal LFTs: (12) UTI (urinary tract infection): Plan: - Follow urine culture shows multiple organisms requesting recollection patient is without current symptoms of urinary tract infection - Received empiric Rocephin Plan: monitor in the hospital, T michael still increasing Admission and Anticipated Discharge Date Admission Date: August 05, 2021 Subjective patient seen and examined, complains of back pain Review of Systems Review of Systems: All systems reviewed are negative, apart from the ones contained in the history. Physical Exam Physical Exam: The patient is awake, alert and oriented 3, jaundiced HEENT--PERRL, EOMI, mucous membranes and oropharynx mildly dry, jaundiced Neck--supple. No JVD. No bruits. Thyroid normal, trachea midline, no adenopathy. Heart--normal S1 and S2. No murmurs, rubs or gallops. Lungs--clear bilaterally, no respiratory distress, no accessory muscle use. Abdomen--normal bowel sounds and soft. Mild epigastric and left sided abdominal pain Extremities--no cyanosis or clubbing. No edema. Dermatologic--normal skin turgor, normal color, no abnormal lymph nodes, no rash. Neurologic--cranial nerves II through XII grossly intact. mild tremors Rheumatologic--normal range of motion. Psychiatric--normal affect. Results & Data Results & Data ([facility]) Vital Signs (Past 12 Hours) Vital Signs Temp Pulse Pulse Resp BP Pulse Ox 08/13/21 16:55 98.6 F 81 20 113/75 98 08/13/21 15:48 77 08/13/21 11:42 98.4 F 84 18 122/82 98 08/13/21 07:48 83 08/13/21 07:36 98.2 F 85 20 104/72 95 PG Care Time/CCT Total # of Minutes Spent Total Time Spent with Patient: Total time spent is greater than 50% in coordination of care (as documented) at patient's floor/unit and/or counseling patient: Coding Level of Care Code 07884 Subseq Hosp Care Lvl 2 Diagnoses Alcoholic liver disease K70.9 Seizure R56.9 Pancreatitis K85.90 Alcohol abuse F10.10 Depression F32.9 Elevated troponin I level R77.8 Hyponatremia E87.1 Anemia D64.9 Anemia type: unspecified type Fatty liver K76.0 Hypokalemia E87.6 Abnormal LFTs R79.89 UTI (urinary tract infection) N30.00 Hematuria presence: without hematuria Urinary tract infection type: acute cystitis Time Spent (min) 35 (1) Anemia Anemia type: unspecified type Qualified Code(s): D64.9 - Anemia, unspecified (2) UTI (urinary tract infection) Hematuria presence: without hematuria Urinary tract infection type: acute cystitis Qualified Code(s): N30.00 - Acute cystitis without hematuria
[2021-08-14 01:21] LABS: Anti Mitochondrial Antibody NEGATIVE (NEGATIVE); Anti Nuclear Antibody Screen NEGATIVE (NEGATIVE); CMV IgM Antibody <30.00 AU/mL; Liver,Kidney Microsome IgG Ab <=20.0 U (<=20.0)
[2021-08-14] MEDS: ONDANSETRON INJ 2 MG/ML 2 ML VIAL IV PRN (05:33)
[2021-08-14] MEDS: LEVOTHYROXINE SODIUM 75 MCG TABLET PO SCH (05:33)
[2021-08-14 07:26] LABS: Basophils # (auto) 0.03 K/uL (0-0.2); Basophils % (auto) 0.2 %; Eosinophils # (auto) 0.02 K/uL (0-0.5); Eosinophils % (auto) 0.1 %; Hematocrit (blood only) 28.5 % (37-47); Hemoglobin 9.9 g/dL (12.0-16.0); Immature Granulocytes % (auto) 0.7 %; Lymphocytes # (auto) 1.01 K/uL (1.2-3.4); Lymphocytes % (auto) 7.2 %; Mean Corpuscular Hemoglobin 39.1 pg (25-34); Mean Corpuscular Hgb Conc 34.7 g/dL (32-36); Mean Corpuscular Volume 112.6 fL (80-100); Mean Platelet Volume 11.1 fL (7.4-10.4); Monocytes # (auto) 0.84 K/uL (0.11-0.59); Neutrophils # (auto) 12.03 K/uL (1.4-6.5); Neutrophils % (auto) 85.8 %; Platelet Count 154 K/uL (130-400); RDW Standard Deviation 69.6 fL (36.4-46.3); Red Blood Count 2.53 M/uL (4.2-5.4); White Blood Count 14.03 K/uL (4.8-10.8)
[2021-08-14 07:41] LABS: INR 1.2 (0.9-1.1); Prothrombin Time 12.4 Seconds (9.0-12.0)
[2021-08-14 07:50] LABS: Albumin Globulin Ratio 1.4 (0.9-2); Albumin Level 2.3 gm/dl (3.4-5.0); BUN Creatinine Ratio 15.4 (10-20); Bilirubin Direct 9.2 mg/dl (0-0.2); Bilirubin,Total 19.5 mg/dl (0.2-1.0); Calcium 7.6 mg/dl (8.5-10.1); Est GFR (African American) 122.1 ml/min; Est GFR (Non-African American) 105.3 ml/min; Globulin 1.7 gm/dl (2.5-4.0); Potassium 3.5 mmol/L (3.5-5.1)
[2021-08-14 07:51] LABS: Macrocytosis Present
[2021-08-14] MEDS: LIDOCAINE 5% 1 PATCH TD SCH (09:03)
[2021-08-14] MEDS: prednisoLONE sod phosphate 15 MG/5 ML PO SCH (09:04)
[2021-08-14] MEDS: FOLIC ACID 1 MG TAB PO SCH (09:04)
[2021-08-14] MEDS: THIAMINE HCL 100 MG TAB PO SCH (09:04)
[2021-08-14] MEDS: levETIRAcetam 500 MG TAB PO SCH ×2 (09:05→21:42)
[2021-08-14] MEDS: CYANOCOBALAMIN (B-12) 500 MCG TABLET PO SCH (09:05)
[2021-08-14] MEDS: POTASSIUM CHLORIDE CRTAB 20 MEQ TABCR PO SCH (09:05)
[2021-08-14] MEDS: PANTOprazole 40 MG TAB PO SCH (09:05)
[2021-08-14] MEDS: buPROPion HCl 75 MG TABLET PO SCH (09:05)
[2021-08-14] MEDS: CHOLESTYRAMINE LIGHT 4 GM PKT PO SCH ×2 (13:38→21:42)
--- NOTE | 2021-08-14 14:47 | Hospitalist Progress Note ---
Date of Service August 14, 2021 Assessment & Plan (1) Alcoholic liver disease: Plan: Severe Alcohol Induced Hepatitis, Wernicke's encephalopathy Last drink 08/05/2021. . Does have a seizure disorder with no seizure in the last year Ammonia normal on admission - thiamine 100 mg p.o. daily, folic acid 1 mg p.o. every morning, Received banana bag on admission Elevated liver enzymes on admission, also Total Michael elevated and rising - RUQ US: Liver is enlarged with fatty infiltration and hepatocellular disease. There is no evidence for a focal mass. - CT-A/P: Findings are compatible with hepatic steatosis and hepatomegaly with mild ascites. Admit Child Arce: Class C, 10-11 points, remains with increased 1-3 year mortality Admit Meld score 24, 19.6% 3-month mortality [facility] discriminant function 31.8. + Benefit of glucocorticoid therapy, +prednisolone 40mg daily started 08/06/21 recommend 30 d as is improving - Liver enzymes continue to improve - Pantoprazole 40mg GI PPx daily cholestyramine started 08/11 (2) Seizure: Plan: Continue Keppra 500 mg p.o. twice daily (3) Pancreatitis: Plan: Possible alcohol induced pancreatitis no pancreatic inflammation commented on imaging - Lipase unable to be run in the setting of hyperbilirubinemia (4) Alcohol abuse: Plan: out of time frame for acute withdrawal (5) Depression: Plan: Continue escitalopram As noted above, patient has had bupropion discontinued recently patient feels extremely depressed lost the will to want to eat, bupropion is ok to use in liver failure in reduced doses will start at 75 mg (6) Elevated troponin I level: Plan: - Troponin 33.2 demand ischemia TTE: LVSF normal. Grade II diastolic dysfunction. LV wall motion normal. RA mild dilation. Mild IVC dilation. Echo: (7) Hyponatremia: Plan: Hyponatremia in the setting of poor intake Beer potomania Sodium 123 on admission, slowly up trended (8) Anemia: Plan: Hyperchromic, macrocytic anemia Likely secondary to alcohol abuse poor nutritional intake Follow serially (9) Fatty liver: Plan: Abnormal LFTs will be followed, As noted on ultrasound (10) Hypokalemia: Plan: - Repleted as noted, normalized (11) Abnormal LFTs: (12) UTI (urinary tract infection): Plan: - Follow urine culture shows multiple organisms requesting recollection patient is without current symptoms of urinary tract infection - Received empiric Rocephin Plan: monitor in the hospital, T michael still increasing Admission and Anticipated Discharge Date Admission Date: August 05, 2021 Subjective patient seen and examined, complains of back pain Review of Systems Review of Systems: All systems reviewed are negative, apart from the ones contained in the history. Physical Exam Physical Exam: The patient is awake, alert and oriented 3, jaundiced HEENT--PERRL, EOMI, mucous membranes and oropharynx mildly dry, jaundiced Neck--supple. No JVD. No bruits. Thyroid normal, trachea midline, no adenopathy. Heart--normal S1 and S2. No murmurs, rubs or gallops. Lungs--clear bilaterally, no respiratory distress, no accessory muscle use. Abdomen--normal bowel sounds and soft. Mild epigastric and left sided abdominal pain Extremities--no cyanosis or clubbing. No edema. Dermatologic--normal skin turgor, normal color, no abnormal lymph nodes, no rash. Neurologic--cranial nerves II through XII grossly intact. mild tremors Rheumatologic--normal range of motion. Psychiatric--normal affect. Results & Data Results & Data ([facility]) Vital Signs (Past 12 Hours) Vital Signs Temp Pulse Pulse Resp BP Pulse Ox 08/14/21 11:09 98.6 F 79 18 103/66 100 08/14/21 07:34 76 08/14/21 07:09 98.4 F 77 16 110/72 97 08/14/21 03:06 98.2 F 72 16 108/70 97 PG Care Time/CCT Total # of Minutes Spent Total Time Spent with Patient: Total time spent is greater than 50% in coordination of care (as documented) at patient's floor/unit and/or counseling patient: Coding Level of Care Code 50122 Subseq Hosp Care Lvl 2 Diagnoses Alcoholic liver disease K70.9 Seizure R56.9 Pancreatitis K85.90 Alcohol abuse F10.10 Depression F32.9 Elevated troponin I level R77.8 Hyponatremia E87.1 Anemia D64.9 Anemia type: unspecified type Fatty liver K76.0 Hypokalemia E87.6 Abnormal LFTs R79.89 UTI (urinary tract infection) N30.00 Hematuria presence: without hematuria Urinary tract infection type: acute cystitis Time Spent (min) 35 (1) Anemia Anemia type: unspecified type Qualified Code(s): D64.9 - Anemia, unspecified (2) UTI (urinary tract infection) Hematuria presence: without hematuria Urinary tract infection type: acute cystitis Qualified Code(s): N30.00 - Acute cystitis without hematuria
--- NOTE | 2021-08-14 17:37 | Gastroenterology Progress Note ---
Date of Service August 14, 2021 Assessment & Plan (1) Alcoholic liver disease: Plan: ETOH hepatitis---serologies for other etiology negative so far. TB better today. . If same or improved tomorrow then could DC.. INR is stable. Discussed with patient regarding this near experience and needs complete ETOH abstinence. elevated ammonia--clinicall mental status ok so no lactulose for now. I, Manolo Millard MD have spent 10 minutes of discrete time performing the activities of this visit which include but are not limited to review of the medical record, obtaining a history, physical exam, and entering information in the electronic record. Admission and Anticipated Discharge Date Admission Date: August 05, 2021 Subjective CC f/u jaundice HPI Pt without abd complaint. Tolerating po well. TB today / vs 22.4 yesteday so improved. Other LFTS better also. INR stable. Pt is awake and alert. Physical Exam Gastrointestinal (Abdomen): normal bowel sounds, soft, nontender, no hepatosplenomegaly Results & Data ([facility]) Vital Signs (Past 12 Hours) Vital Signs Temp Pulse Pulse Pulse Resp BP Pulse Ox 08/14/21 15:33 37.1 C 80 18 96/64 L 97 08/14/21 15:29 81 08/14/21 11:09 37.0 C 79 18 103/66 100 08/14/21 07:34 76 08/14/21 07:09 36.9 C 77 16 110/72 97
[2021-08-14] MEDS: MoRPHine SULFATE 2 MG/ML CARP IV PRN (22:02)
[2021-08-15] MEDS: LEVOTHYROXINE SODIUM 75 MCG TABLET PO SCH (05:49)
[2021-08-15] MEDS: buPROPion HCl 75 MG TABLET PO SCH (08:42)
[2021-08-15] MEDS: LIDOCAINE 5% 1 PATCH TD SCH (08:42)
[2021-08-15] MEDS: CYANOCOBALAMIN (B-12) 500 MCG TABLET PO SCH (08:42)
[2021-08-15] MEDS: THIAMINE HCL 100 MG TAB PO SCH (08:42)
[2021-08-15] MEDS: levETIRAcetam 500 MG TAB PO SCH ×2 (08:43→20:26)
[2021-08-15] MEDS: POTASSIUM CHLORIDE CRTAB 20 MEQ TABCR PO SCH (08:43)
[2021-08-15] MEDS: FOLIC ACID 1 MG TAB PO SCH (08:43)
[2021-08-15] MEDS: PANTOprazole 40 MG TAB PO SCH (08:43)
[2021-08-15] MEDS: prednisoLONE sod phosphate 15 MG/5 ML PO SCH (08:44)
--- NOTE | 2021-08-15 08:52 | Gastroenterology Progress Note ---
Date of Service August 15, 2021 Assessment & Plan (1) Abnormal LFTs: Plan: ETOH hepatitis---serologies for other etiology negative so far. LFTs are pending this morning. Would like to see a true trend downward prior to DC. Fortunately INR is stable so liver synthetic function although somewhat diminished, is stable. elevated ammonia--clinically mental status ok so no lactulose for now. Case reviewed with Dr. Millard. Please refer to supervising physician addendum for further recommendations. I have spent 15 minutes of discrete time performing the activities of this visit which include but are not limited to review of the medical record, obtaining a history, physical exam, and entering information in the electronic record. (2) Alcoholic liver disease: Admission and Anticipated Discharge Date Admission Date: August 05, 2021 Supervising Physician Co-Signing Physician Notes I have seen and examined the patient. I agree with note above by MARKELL Caro except as noted below. HPI Pt awake and alert. Denies abd pain INR stable TB back up again at 22.1. Additional serologies back with SHERRY, ASMA, LKM neg, AMA and CMV IgM PE Abdomen pos bs, soft, no guarding nor rebound A/P ETOH hepatitis--continue prednisolone and supportive care. As the supervising physician, I , Manolo Millard MD have spent 16 minutes of discrete time performing the activities of this visit which include but not limited to review of the medical records, obtaining a history, physical exam and entering information in the electronic record. MARKELL Caro has reported spending 15 minutes of discrete time with the activities of this visit. Subjective Patient awake alert and oriented this morning. States she is feeling significantly better and more clear. No abdominal pain. Denies nausea or vomiting. States last bowel movement was yesterday. She did eat a breakfast tray this morning and ate a tray. She states she does not typically have much of an appetite. Has no complaints this morning and would like to go home soon. Review of Systems Review of Systems: All systems reviewed & are unremarkable except as noted in Subjective Physical Exam Gastrointestinal (Abdomen): normal bowel sounds, soft, nontender, no hepatosplenomegaly Skin: + jaundice Results & Data ([facility]) Vital Signs (Past 12 Hours) Vital Signs Temp Pulse Pulse Pulse Resp BP Pulse Ox 08/15/21 07:48 36.8 C 70 18 123/85 97 08/15/21 07:29 64 08/15/21 03:13 36.6 C 72 19 130/77 98 08/15/21 02:38 78 08/14/21 22:52 36.8 C 75 16 112/80 99
[2021-08-15 10:52] LABS: Albumin Level 2.6 gm/dl (3.4-5.0); Bilirubin,Total 22.1 mg/dl (0.2-1.0); Total Protein 4.9 gm/dl (6.0-8.3)
[2021-08-15 11:03] LABS: Bilirubin Direct 13.3 mg/dl (0-0.2)
[2021-08-15] MEDS: oxyCODONE HCL IR 5 MG TAB (IMMEDIATE RELEASE) PO PRN ×2 (12:43→20:26)
[2021-08-15] MEDS: CHOLESTYRAMINE LIGHT 4 GM PKT PO SCH ×2 (12:44→21:15)
--- NOTE | 2021-08-15 14:06 | Hospitalist Progress Note ---
Date of Service August 15, 2021 Assessment & Plan (1) Alcoholic liver disease: Plan: Severe Alcohol Induced Hepatitis, Wernicke's encephalopathy Last drink 08/05/2021. . Does have a seizure disorder with no seizure in the last year Ammonia normal on admission - thiamine 100 mg p.o. daily, folic acid 1 mg p.o. every morning, Received banana bag on admission Elevated liver enzymes on admission, also Total Michael elevated and rising - RUQ US: Liver is enlarged with fatty infiltration and hepatocellular disease. There is no evidence for a focal mass. - CT-A/P: Findings are compatible with hepatic steatosis and hepatomegaly with mild ascites. Admit Child Arce: Class C, 10-11 points, remains with increased 1-3 year mortality Admit Meld score 24, 19.6% 3-month mortality [facility] discriminant function 31.8. + continue steroids 40mg daily -Liver enzymes trending up again after initially trending down - Pantoprazole 40mg GI PPx daily cholestyramine started 08/11 (2) Seizure: Plan: Continue Keppra 500 mg p.o. twice daily (3) Pancreatitis: Plan: Possible alcohol induced pancreatitis no pancreatic inflammation commented on imaging - Lipase unable to be run in the setting of hyperbilirubinemia (4) Alcohol abuse: Plan: out of time frame for acute withdrawal (5) Depression: Plan: Continue escitalopram As noted above, patient has had bupropion discontinued recently patient feels extremely depressed lost the will to want to eat, bupropion is ok to use in liver failure in reduced doses will start at 75 mg (6) Elevated troponin I level: Plan: - Troponin 33.2 demand ischemia TTE: LVSF normal. Grade II diastolic dysfunction. LV wall motion normal. RA mild dilation. Mild IVC dilation. Echo: (7) Hyponatremia: Plan: Hyponatremia in the setting of poor intake Beer potomania monitor (8) Anemia: Plan: Hyperchromic, macrocytic anemia Likely secondary to alcohol abuse poor nutritional intake Follow serially (9) Fatty liver: Plan: Abnormal LFTs will be followed, As noted on ultrasound (10) Hypokalemia: Plan: - Repleted as noted, normalized (11) Abnormal LFTs: (12) UTI (urinary tract infection): Plan: - Follow urine culture shows multiple organisms requesting recollection patient is without current symptoms of urinary tract infection - Received empiric Rocephin Plan: monitor in the hospital, T michael still increasing Admission and Anticipated Discharge Date Admission Date: August 05, 2021 Subjective patient seen and examined, eager to go home Review of Systems Review of Systems: All systems reviewed are negative, apart from the ones contained in the history. Physical Exam Physical Exam: The patient is awake, alert and oriented 3, jaundiced HEENT--PERRL, EOMI, mucous membranes and oropharynx mildly dry, jaundiced Neck--supple. No JVD. No bruits. Thyroid normal, trachea midline, no adenopathy. Heart--normal S1 and S2. No murmurs, rubs or gallops. Lungs--clear bilaterally, no respiratory distress, no accessory muscle use. Abdomen--normal bowel sounds and soft. Mild epigastric and left sided abdominal pain Extremities--no cyanosis or clubbing. No edema. Dermatologic--normal skin turgor, normal color, no abnormal lymph nodes, no rash. Neurologic--cranial nerves II through XII grossly intact. mild tremors Rheumatologic--normal range of motion. Psychiatric--normal affect. Results & Data Results & Data ([facility]) Vital Signs (Past 12 Hours) Vital Signs Temp Pulse Pulse Pulse Resp BP Pulse Ox 08/15/21 11:29 98.2 F 70 18 121/84 100 08/15/21 07:48 98.2 F 70 18 123/85 97 08/15/21 07:29 64 08/15/21 03:13 97.9 F 72 19 130/77 98 08/15/21 02:38 78 PG Care Time/CCT Total # of Minutes Spent Total Time Spent with Patient: Total time spent is greater than 50% in coordination of care (as documented) at patient's floor/unit and/or counseling patient: Coding Level of Care Code 03225 Subseq Hosp Care Lvl 2 Diagnoses Alcoholic liver disease K70.9 Seizure R56.9 Pancreatitis K85.90 Alcohol abuse F10.10 Depression F32.9 Elevated troponin I level R77.8 Hyponatremia E87.1 Anemia D64.9 Anemia type: unspecified type Fatty liver K76.0 Hypokalemia E87.6 Abnormal LFTs R79.89 UTI (urinary tract infection) N30.00 Hematuria presence: without hematuria Urinary tract infection type: acute cystitis Time Spent (min) 35 (1) Anemia Anemia type: unspecified type Qualified Code(s): D64.9 - Anemia, unspecified (2) UTI (urinary tract infection) Hematuria presence: without hematuria Urinary tract infection type: acute cystitis Qualified Code(s): N30.00 - Acute cystitis without hematuria
[2021-08-16] MEDS: MoRPHine SULFATE 2 MG/ML CARP IV PRN (02:38)
[2021-08-16] MEDS: LEVOTHYROXINE SODIUM 75 MCG TABLET PO SCH (06:04)
[2021-08-16 06:28] LABS: Albumin Level 2.2 gm/dl (3.4-5.0); Bilirubin Direct 7.4 mg/dl (0-0.2); Bilirubin,Total 16.6 mg/dl (0.2-1.0); Total Protein 4.2 gm/dl (6.0-8.3)
--- NOTE | 2021-08-16 08:27 | Gastroenterology Progress Note ---
Date of Service August 16, 2021 Assessment & Plan (1) Abnormal LFTs: Plan: ETOH hepatitis---serologies for other etiology negative so far. LFTs demonstrating downward trend from yesterday. Would like to see a true trend downward prior to DC. If stable to decreased, likely for discharge tomorrow. Fortunately INR is stable so liver synthetic function although somewhat diminished, is stable. elevated ammonia--clinically mental status ok so no lactulose for now. Case reviewed with Dr. Millard. Please refer to supervising physician addendum for further recommendations. I have spent 10 minutes of discrete time performing the activities of this visit which include but are not limited to review of the medical record, obtaining a history, physical exam, and entering information in the electronic record. (2) Alcoholic liver disease: Admission and Anticipated Discharge Date Admission Date: August 05, 2021 Supervising Physician Co-Signing Physician Notes Pt was discharged prior to making my rounds so not seen. Subjective Patient awake alert and oriented this morning. She is eating regular breakfast tray this morning. Reports some mild pain in her bilateral outer abdomen this morning, denies any nausea or vomiting. Reports small bowel movement this morning. Review of Systems Review of Systems: All systems reviewed & are unremarkable except as noted in Subjective Physical Exam Gastrointestinal (Abdomen): normal bowel sounds, soft, nontender, no hepatosplenomegaly Skin: + jaundice Results & Data ([facility]) Vital Signs (Past 12 Hours) Vital Signs Temp Pulse Pulse Resp BP Pulse Ox 08/16/21 08:20 36.8 C 87 19 116/75 96 08/16/21 04:19 36.8 C 68 17 111/75 98 08/15/21 23:28 65 08/15/21 21:58 36.8 C 75 19 99/69 L 98 Laboratory Results Laboratory Results - last 24 hr 08/15/21 08/16/21 09:56 05:43 Total Bilirubin 22.1 H 16.6 H Direct Bilirubin 13.3 H 7.4 H AST 160 H 127 H ALT 89 H 74 H Alkaline Phosphatase 390 H 313 H Total Protein 4.9 L 4.2 L Albumin 2.6 L 2.2 L
[2021-08-16] MEDS: CYANOCOBALAMIN (B-12) 500 MCG TABLET PO SCH (08:30)
[2021-08-16] MEDS: LIDOCAINE 5% 1 PATCH TD SCH (08:30)
[2021-08-16] MEDS: POTASSIUM CHLORIDE CRTAB 20 MEQ TABCR PO SCH (08:30)
[2021-08-16] MEDS: levETIRAcetam 500 MG TAB PO SCH (08:30)
[2021-08-16] MEDS: THIAMINE HCL 100 MG TAB PO SCH (08:30)
[2021-08-16] MEDS: PANTOprazole 40 MG TAB PO SCH (08:30)
[2021-08-16] MEDS: buPROPion HCl 75 MG TABLET PO SCH (08:30)
[2021-08-16] MEDS: FOLIC ACID 1 MG TAB PO SCH (08:30)
[2021-08-16] MEDS: prednisoLONE sod phosphate 15 MG/5 ML PO SCH (08:31)
[2021-08-16] MEDS: oxyCODONE HCL IR 5 MG TAB (IMMEDIATE RELEASE) PO PRN (08:47)
[2021-08-16] MEDS: CHOLESTYRAMINE LIGHT 4 GM PKT PO SCH (10:46)
--- NOTE | 2021-08-16 12:05 | Discharge Summary ---
Date of Service August 16, 2021 Admission HPI Per Admitting Provider The patient is a 56-year-old female with a past medical history including seizure disorder, hypothyroidism, depression, GERD and vitamin B12 deficiency. She reports that about 5 to 6 weeks ago, she developed the above symptoms. She went to her family PCP, had some laboratories done earlier this week, received a call that they were abnormal, and that she was coming to the emergency room for additional assessment. She reports that she has had worsening reflux, and vomits on a daily basis. She reports that she had been on bupropion, which was recently stopped and changed to escitalopram. She denies any recent travels or sick exposures. She reports that she on a daily basis go to the public and drinks 3 beers after work. Principal Diagnosis alcoholic hepatitis Discharge Exam The patient is awake, alert and oriented 3, jaundiced HEENT--PERRL, EOMI, mucous membranes and oropharynx mildly dry, jaundiced Neck--supple. No JVD. No bruits. Thyroid normal, trachea midline, no adenopathy. Heart--normal S1 and S2. No murmurs, rubs or gallops. Lungs--clear bilaterally, no respiratory distress, no accessory muscle use. Abdomen--normal bowel sounds and soft. Mild epigastric and left sided abdominal pain Extremities--no cyanosis or clubbing. No edema. Dermatologic--normal skin turgor, normal color, no abnormal lymph nodes, no rash. Neurologic--cranial nerves II through XII grossly intact. mild tremors Rheumatologic--normal range of motion. Psychiatric--normal affect. Discharge Data Allergies Allergy/AdvReac Type Severity Reaction Status Date / Time No Known Allergies Allergy Unknown Verified 11/07/17 17:50 Consultations 08/05/21 20:21 ED Decision to Admit Stat 08/09/21 08:17 Consult Gastroenterology Routine Ordered Studies 08/05/21 17:17 abdomen limited Stat 08/06/21 03:30 CT abd pelvis wo con Routine 08/08/21 05:29 CT abd pelvis IV con only Urgent Hospital Course (1) Alcoholic liver disease: Severe Alcohol Induced Hepatitis, Wernicke's encephalopathy Last drink 08/05/2021. . Does have a seizure disorder with no seizure in the last year Ammonia normal on admission - thiamine 100 mg p.o. daily, folic acid 1 mg p.o. every morning, Received banana bag on admission Elevated liver enzymes on admission, trending down - RUQ US: Liver is enlarged with fatty infiltration and hepatocellular disease. There is no evidence for a focal mass. - CT-A/P: Findings are compatible with hepatic steatosis and hepatomegaly with mild ascites. Admit Child Arce: Class C, 10-11 points, remains with increased 1-3 year mortality Admit Meld score 24, 19.6% 3-month mortality [facility] discriminant function 31.8. + continue steroids taper -Liver enzymes trending up again after initially trending down - Pantoprazole 40mg GI PPx daily cholestyramine started 08/11 (2) Seizure: Continue Keppra 500 mg p.o. twice daily (3) Pancreatitis: Possible alcohol induced pancreatitis no pancreatic inflammation commented on imaging - Lipase unable to be run in the setting of hyperbilirubinemia (4) Alcohol abuse: out of time frame for acute withdrawal (5) Depression: Continue escitalopram As noted above, patient has had bupropion discontinued recently patient feels extremely depressed lost the will to want to eat, bupropion is ok to use in liver failure in reduced doses will start at 75 mg (6) Elevated troponin I level: - Troponin 33.2 demand ischemia TTE: LVSF normal. Grade II diastolic dysfunction. LV wall motion normal. RA mild dilation. Mild IVC dilation. Echo: (7) Hyponatremia: Hyponatremia in the setting of poor intake Beer potomania monitor (8) Anemia: Hyperchromic, macrocytic anemia Likely secondary to alcohol abuse poor nutritional intake Follow serially (9) Fatty liver: Abnormal LFTs will be followed, As noted on ultrasound (10) Hypokalemia: - Repleted as noted, normalized (11) Abnormal LFTs: (12) UTI (urinary tract infection): - Follow urine culture shows multiple organisms requesting recollection patient is without current symptoms of urinary tract infection - Received empiric Rocephin monitor in the hospital, T karen still increasing Total Time Total Time Spent Total Time Spent (In Minutes): 35 Discharge Plan Discharge Items Patient Disposition: Home - Self-Care Reason For Visit: JAUNDICE, ABNORMAL LFT'S, ALCOHOL ABUSE Discharge Diagnosis: Alcoholic hepatitis Activity: Resume your previous activity Non-emergency contact: Primary Care Provider and Soda Clerk Call non-emergency contact if: you have any medication questions Follow-up/Referrals: Manolo De Leon [Primary Care Provider] - 08/19/21 12:30 pm Diet: Regular Addtl Attending Provider Instructions: please make appointment to follow up with your GI doctor Pending Studies at Discharge: No Stand-Alone Forms: My [facility], Smoking Cessation Medications and DC Order Prescriptions: New pantoprazole 40 mg Tablet,Delayed Release (Dr/Ec) 40 mg PO QAM 30 Days Qty: 30 RF: 0 cholestyramine-aspartame [Cholestyramine Light] 4 gram Powder In Packet 4 g PO BID@1000,2200 60 Days Qty: 30 RF: 0 prednisolone sodium phosphate 30 mg tablet,disintegrating 30 mg PO DAILY Qty: 7 RF: 0 Continued levothyroxine 75 mcg tablet 75 mcg PO QAM RF: 0 bupropion HCl 300 mg tablet extended release 24 hr 300 mg PO QPM RF: 0 levetiracetam [Keppra] 500 mg tablet 500 mg PO BID 28 Days Qty: 56 RF: 2 pantoprazole 40 mg tablet,delayed release (DR/EC) 40 mg PO QAM RF: 0 B12 Active 1,000 mcg Tablet,Chewable 1,000 mcg PO QAM RF: 0 Discharge Orders: Discharge Order (Routine); Ordered 08/16/21 Ordered By: Francisco Gandhi Admission Data Admit Date/Time: 08/05/21 22:24 Attending Provider: Francisco Gandhi Admit Provider: Rayshawn De La Torre Primary Care Provider: Manolo De Leon Other Providers: Rayshawn De La Torre ; Manolo Millard. Other Interventions: Discharge Summary Assessment (RN) Last Done: 08/16/21 11:15 Coding Level of Care Code D/C DAY MANAGEMENT >30 MINS Diagnoses Alcoholic liver disease K70.9 Seizure R56.9 Pancreatitis K85.90 Alcohol abuse F10.10 Depression F32.9 Elevated troponin I level R77.8 Hyponatremia E87.1 Anemia D64.9 Anemia type: unspecified type Fatty liver K76.0 Hypokalemia E87.6 Abnormal LFTs R79.89 UTI (urinary tract infection) N30.00 Hematuria presence: without hematuria Urinary tract infection type: acute cystitis Time Spent (min) 35
== END 2021-08-16 12:06 | disposition home or self-care (01) | DRG 432 ==
LOC: ED 14:58 → SUATTDRO 22:24 → 2W 22:24